=== PATIENT | male | born 1945 | race Caucasian/White ===

== ENCOUNTER 2024-08-11 13:50 | Outpatient (CLI) | payer MEDICARE, SELFPAY ==
--- OUTSIDE RECORDS SUMMARY | 2024-08-11 13:54 | XMS_ITS | Encounter Summary ---
Author Name [facility] [place] [facility] [place] Address [address] [place] [id number] Care Team Providers Care Security Specialist Name Role Phone ROLAND OCHOA Primary Care Provider Unavailabl e Insurance Providers: All historical and current Section Date Range: From patient's date of to the date document was created. This section includes the names of all active insurance providers for the patient. Insurance Provider Type of Coverage Plan Name Start of Policy Coverage End of Policy Coverage Group Number Member ID Insurance Provider's Telephone Number Policy Frank's Name Patient's Relationship to Policy Frank [employer] MEDICARE SECONDARY (NO B EXC) OCCID ENTAL KATHIA Sep 15, 1990 [id number] Shonna FLOWERS OBBY PATIENT AETNA [facility] (WNR) MEDICARE ADVANTAGE [facility] (WNR) Mar 18, 2018 [id number] MEBRZWH Z LIONEL,Shonna OBBY PATIENT [employer]NA [facility] (WNR) MEDICARE ADVANTAGE [facility] (WNR) Mar 18, 2018 [phone] [id number] LIONEL,Shonna OBBY PATIENT [employer] [facility] PRESCRIPT ION NONE Mar 18, 2009 NONE [id number] Shonna FLOWERS OBBY PATIENT MEDICARE (WNR) MEDICARE (M) PART A Jan 17, 2012 PART A [id number] LIONEL,B OBBY PATIENT MEDICARE (WNR) MEDICARE (M) PART B Jan 17, 2012 PART B [id number] LIONEL,B OBBY PATIENT MEDICARE PART D (WNR) MEDICARE (M) PART D Mar 18, 2018 PART D [id number] FLOWERS,B OBBY PATIENT Selected Encounter This section includes the information on record at [place] for the Encounter. Date/Time Encounter Type Encounter Description Reason Pro vider Source Jun 16, 2024 12:00 PM Outpatient Encounter COMMUNITY CARE CONSULT IHE Encounter Template Text not used by [place] Plan of Treatment: Future Appointments (+ 6 months) and Future Tests (+/- 45 days) The Plan of Treatment section includes [facility] care [facility] the [facility] [place] [facility] This section includes future appointments and future orders which are active, pending or scheduled. Future Appointments This section includes appointments that were scheduled to occur 6 months from the date of the Encounter, up to a maximum of 20 appointments. The data comes from all [place] treatment facilities. Appointment Date/Time Appointment Type Appointme nt Facility Name July 23, 2024 08:40 AM [facility] Aug 18, 2024 01:00 PM AMBULAT[facility] - MEDICINE [facility] Active, Pending, and Scheduled Orders This section includes a listing of several types of active, pending, and scheduled orders, including clinic medications orders, diagnostic test orders, procedure orders and consult orders; where the start date of the order is 45 days before the date of the Encounter or 45 days after the date of theEncounter. The data comes from all [place] treatment facilities. Test Date/Time Test Type Test Details Facility Name July 23, 2024 12:00 AM Laboratory - Chemi strkendell Order URINALYSIS WITH REFLEX TO CULTURE URINE SP ONCE [facility] Social History: Smoking Status (Most current) and Tobacco Use (All prior to encounter date) This section includes the most current, and the historical, smoking and tobacco- related health factors from the [place] facility where the Encounter took place. Current Smoking Status This section includes the most current smoking, or tobacco-related health factor, from the [place] facility where the Encounter took place. Date/Time Current Smoking Status Comment Facil ity Dec 31, 2022 08:00 AM VA-TOBACCO NEVER USED [facility] Tobacco Use History This section includes a history of the smoking, or tobacco-related health factors, that were collected on or before the date of the Encounter. The data comes from the [place] facility where the Encounter took place. Date/Time Smoking Status/Tobacco Use Comment F acility Dec 29, 2021 08:30 AM VA-TOBACCO NEVER USED [facility] Dec 29, 2020 08:00 AM VA-TOBACCO NEVER USED [facility] Jan 08, 2020 09:00 AM VA-TOBACCO FORMER USER [facility] Jan 08, 2020 09:00 AM VA-TOBACCO QUIT 15 YRS OR MORE [facility] Nov 24, 2018 01:49 PM VA-TOBACCO NEVER USED [facility] Dec 18, 2017 09:12 AM VA-TOBACCO NEVER USED [facility] Jun 01, 2016 08:52 AM V9 LIFETIME NON-USER OF TOBACCO [facility] Dec 02, 2014 09:26 AM V9 LIFETIME NON-USER OF TOBACCO [facility] Nov 30, 2013 08:47 AM V9 LIFETIME NON-USER OF TOBACCO [facility] Nov 26, 2012 08:03 AM V9 LIFETIME NON-USER OF TOBACCO [facility] Nov 26, 2012 08:03 AM V9 TOBACCO OFFERED [facility] Nov 26, 2011 01:49 PM V9 LIFETIME NON-USER OF TOBACCO [facility] Encounter Notes: All associated encounter notes This section contains the clinical notes associated to the Encounter. Date/Time Encounter Note(s) Provider Source Jun 16, 2024 12:00 PM NONVA CONSULT: LOCAL TITLE: COMMUNITY CARE-CONSULT RESULT NOTE STANDARD TITLE: NONVA CONSULT DATE OF NOTE: JUN 16, 2024@12:00 ENTRY DATE: JUN 25, 2024@15:56:35 AUTHOR: DUY DOUGHERTY EXP COSIGNER: URGENCY: STATUS: COMPLETED VistA Imaging - Scanned Document [facility]ITC Chiropractic Record SCANNED DOCUMENT SIGNATURE NOT REQUIRED Electronically Filed: 06/25/2024 by: Duy Dougherty Formerly [facility] AMSA-Pod 5 DUY DOUGHERTY [facility]
--- OUTSIDE RECORDS SUMMARY | 2024-08-11 13:54 | XMS_ITS | Data Portability ---
Author Organization ANDRA - Rolando farias, AMADAS HUNNEWELL CLOSED Address [address] [place] [address] Care Team Providers Care Service Technician Name Role Phone GHANSHYAM PINEDA Primary Care Provider [phone] Assessment Encounter Date Assessment Date Assessment LastModified by Organization Details LastModified Time 04/30/2024 04/30/2024 Assessment: Chronic cystitis, dysuria, history of malignant neoplasm of the prostate. Plan: ? I am sending the urine for culture given the results of in office urinalysis. ? We discussed conservative measures such as maintaining adequate hydration and avoidance of bladder irritants. ? We also discussed possible utility of hyperbaric oxygen therapy for radiation cystitis, I gave him some informational materials on this. ? He is scheduled for follow-up with Dr. Merlos for follow up on PSA, if he is interested in possibly pursuing hyperbaric oxygen therapy, he can discuss this further with Dr. Merlos. Not available 05/07/2024 14:11:34 06/05/2024 06/05/2024 79-year-old male with a history of prostate cancer presenting with radiation cystitis. 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 Consider hyperbaric oxygen therapy for management. Monitoring symptoms and reassessment in future visits are planned. [email or web address] Not available 06/07/2024 11:42:06 Plan of Treatment Reminders Order Date Submit Date Provider Last Modified By Organization Details Last Modified Time Details Appointments RECHECK 2024 10:30A Adonis GAMING MD Not available Not available Not available RECHECK 2024 10:00A Adonis MERLOS MD Not available Not available Not available Lab urinalysi s panel, auto 2024 025 [facility], [address], [place], [address], 06/07/2024 15:26:26 urinalysi s panel, auto 2024 025 [email or web address] 4 [facility], [address], [address], [place], [address], 04/30/2024 15:21:20 culture, urine 2024 025 [facility], [address] [place] [address], [address], 05/01/2024 09:57:00 culture, urine 2024 025 [facility], [address] [place] [address], [address], 04/25/2024 10:35:46 urinalysi s panel, auto 2023 024 [facility], [address], [address], [place], [address], 03/15/2024 11:36:54 Referral None recorded. Procedures None recorded. Surgeries None recorded. Imaging None recorded. Medication Orders None recorded. Patient TargetsNo targets recorded. Patient Instructions Encounter Date Encounter Id Patient Instructions Last Modified By Organization Details Last Modified Time 06/05/2024 [id number] - Monitor for an y changes or worsening of symptoms, such as increased frequency or volume of bleeding. - Consider hyperbaric oxygen therapy if symptoms persist or become bothersome, as discussed. - Follow-up in six months for reevaluation unless symptoms require sooner intervention. - Note any new symptoms such as pain or discomfort during urination and report them promptly. [email or web address] Not available 06/07/2024 11:42:08 Reason for Referral None Reported. Results Created Date Observation Date Name Description Value Unit Range Abnormal Flag Note LastModifiedBy Organization Detail LastModifiedTime 02/07/2002/07/2024 urina lysis panel , auto Unknown Analyte Clean Catch Not Available [facility] [address], [place], [address], 02/07/2024 11:11:49 02/07/2002/07/2024 urina lysis panel , auto Unknown Analyte Yellow Not Available [facility] [address], [place], [address], 02/07/2024 11:11:49 02/07/2002/07/2024 urina lysis panel , auto Unknown Analyte Clear Not Available [facility] [address], [place], [address], 02/07/2024 11:11:49 02/07/2002/07/2024 urina lysis panel , auto Unknown Analyte 1.005 Not Available [facility] [address], [place], [address], 02/07/2024 11:11:49 02/07/2002/07/2024 urina lysis panel , auto Unknown Analyte 1.003- 1.035 Not Available [facility] [address], [place], [address], 02/07/2024 11:11:49 02/07/2002/07/2024 urina lysis panel , auto Unknown Analyte 7.0 Not Available [facility] [address], [place], [address], 02/07/2024 11:11:49 02/07/2002/07/2024 urina lysis panel , auto Unknown Analyte 5.0-8. 0 Not Available [facility] [address], [place], [address], 02/07/2024 11:11:49 02/07/2002/07/2024 urina lysis panel , auto Unknown Analyte Negati ve Not Available [facility] [address], [place], [address], 02/07/2024 11:11:49 02/07/2002/07/2024 urina lysis panel , auto Unknown Analyte Negati ve Not Available [facility] [address], [place], [address], 02/07/2024 11:11:49 02/07/2002/07/2024 urina lysis panel , auto Unknown Analyte Negati ve Not Available [facility] [address], [place], [address], 02/07/2024 11:11:49 02/07/2002/07/2024 urina lysis panel , auto Unknown Analyte Negati ve Not Available [facility] [address], [place], [address], 02/07/2024 11:11:49 02/07/2002/07/2024 urina lysis panel , auto Unknown Analyte Negati ve Not Available [facility] [address], [place], [address], 02/07/2024 11:11:49 02/07/2002/07/2024 urina lysis panel , auto Unknown Analyte Negati ve Not Available [facility] [address], [place], [address], 02/07/2024 11:11:49 02/07/2002/07/2024 urina lysis panel , auto Unknown Analyte Normal Not Available [facility] [address], [place], [address], 02/07/2024 11:11:49 02/07/2002/07/2024 urina lysis panel , auto Unknown Analyte Normal Not Available [facility] [address], [place], [address], 02/07/2024 11:11:49 02/07/2002/07/2024 urina lysis panel , auto Unknown Analyte Negati ve Not Available [facility] [address], [place], [address], 02/07/2024 11:11:49 02/07/2002/07/2024 urina lysis panel , auto Unknown Analyte Negati ve Not Available [facility] [address], [place], [address], 02/07/2024 11:11:49 02/07/2002/07/2024 urina lysis panel , auto Unknown Analyte Normal Not Available [facility] [address], [place], [address], 02/07/2024 11:11:49 02/07/20 24 02/07/2024 urina lysis panel , auto Unknown Analyte Normal 1 mg/dl Not Available [facility] [address] [facility] [address], [place], [address], 02/07/2024 11:11:49 02/07/20 24 02/07/2024 urina lysis panel , auto Unknown Analyte Negati ve Not Available [facility] [address] [facility] [address], [place], [address], 02/07/2024 11:11:49 02/07/2002/07/2024 urina lysis panel , auto Unknown Analyte Negati ve Not Available [facility] [address] [place] [address] [address], [place], [address], 02/07/2024 11:11:49 02/07/2002/07/2024 urina lysis panel , auto Unknown Analyte Negati ve Not Available [facility] [address] [place] [address] [address], [place], [address], 02/07/2024 11:11:49 02/07/2002/07/2024 urina lysis panel , auto Unknown Analyte Negati ve Not Available [facility] [address] [place] [address] [address], [place], [address], 02/07/2024 11:11:49 03/04/2003/04/2024 SURGI KEVIN surgical SEE BELOW normal Surgi kevin Patho logy Repor t NAME: CHEIKH EATON PATH: SS-24 [id number] 5 DATE of : 01/[birth year] 0 Copy to: Diagn osis: Bladd er lesio n: Benig n uroth elium with subja cent chron ic cysti tis with conge stion . No malig krystin ident ified . SOURC E OF SPECI MEN: URINA RY BLADD ER BIOPS Y, LESIO N CLINI KEVIN INFOR MATIO N: HEMAT URIA Gross Descr iptio n: Patie nt name and date of verif ied. Recei qamar in forma jordan label ed with the patie nt's name and desig nated blad christie lesio n is a singl e fragm ent of pale yeh tissu e measu ring 0.3 cm. Entir tamiko submi tted in one casse tte label ed A1. MT 03/04 03:40 PM Micro scopi c Descr iptio n: A micro scopi c exami natio n has been perfo rmed and the resul t(s) are as noted above . THOMPSON PEREZ M.D. Adriana d Out Date: 03/05 08:49 Page 1 of 1 Not Available [facility] [address] [place], [address], 03/05/2024 08:49:35 03/04/20 24 03/04/2024 urina lysis panel , auto Unknown Analyte Clean Catch Not Available [facility] Surgery Schedule [address] [place], [address], 03/04/2024 12:13:33 03/04/20 24 03/04/2024 urina lysis panel , auto Unknown Analyte Yellow Not Available [facility] Schedule [address] [place], [address], 03/04/2024 12:13:33 03/04/20 24 03/04/2024 urina lysis panel , auto Unknown Analyte Clear Not Available [facility] Schedule [address] [place], [address], 03/04/2024 12:13:33 03/04/20 24 03/04/2024 urina lysis panel , auto Unknown Analyte 1.020 Not Available [facility] Schedule [address] [place], [address], 03/04/2024 12:13:33 03/04/20 24 03/04/2024 urina lysis panel , auto Unknown Analyte 5.0 Not Available [facility] Schedule [address] [place], [address], 03/04/2024 12:13:33 03/04/20 24 03/04/2024 urina lysis panel , auto Unknown Analyte Negati ve Not Available [facility] Schedule [address] [place], [address], 03/04/2024 12:13:33 03/04/20 24 03/04/2024 urina lysis panel , auto Unknown Analyte Negati ve Not Available [facility] Schedule [address] [place], [address], 03/04/2024 12:13:33 03/04/20 24 03/04/2024 urina lysis panel , auto Unknown Analyte Negati ve Not Available [facility] Schedule [address] [place], [address], 03/04/2024 12:13:33 03/04/20 24 03/04/2024 urina lysis panel , auto Unknown Analyte Normal Not Available [facility] Schedule [address] [place], [address], 03/04/2024 12:13:33 03/04/20 24 03/04/2024 urina lysis panel , auto Unknown Analyte Negati ve Not Available [facility] Schedule [address] [place], [address], 03/04/2024 12:13:33 03/04/20 24 03/04/2024 urina lysis panel , auto Unknown Analyte Normal Not Available [facility] Schedule [address] [place], [address], 03/04/2024 12:13:33 03/04/20 24 03/04/2024 urina lysis panel , auto Unknown Analyte Negati ve Not Available [facility] Schedule [address] [place], [address], 03/04/2024 12:13:33 03/04/20 24 03/04/2024 urina lysis panel , auto Unknown Analyte 50 Tay/ul Not Available [facility] Schedule [address] [place], [address], 03/04/2024 12:13:33 03/13/20 24 03/13/2024 urina lysis panel , auto Unknown Analyte Clean Catch Not Available [facility] [address], [place], [address], 03/13/2024 12:23:32 03/13/20 24 03/13/2024 urina lysis panel , auto Unknown Analyte Yellow Not Available [facility] [address], [place], [address], 03/13/2024 12:23:32 03/13/20 24 03/13/2024 urina lysis panel , auto Unknown Analyte Clear Not Available [facility] [address], [place], [address], 03/13/2024 12:23:32 03/13/20 24 03/13/2024 urina lysis panel , auto Unknown Analyte 1.005 Not Available [facility] [address], [place], [address], 03/13/2024 12:23:32 03/13/20 24 03/13/2024 urina lysis panel , auto Unknown Analyte 1.003- 1.035 Not Available [facility] [address], [place], [address], 03/13/2024 12:23:32 03/13/20 24 03/13/2024 urina lysis panel , auto Unknown Analyte 7.0 Not Available [facility] [address], [place], [address], 03/13/2024 12:23:32 03/13/20 24 03/13/2024 urina lysis panel , auto Unknown Analyte 5.0-8. 0 Not Available [facility] [address], [place], [address], 03/13/2024 12:23:32 03/13/20 24 03/13/2024 urina lysis panel , auto Unknown Analyte Negati ve Not Available [facility] [address], [place], [address], 03/13/2024 12:23:32 03/13/20 24 03/13/2024 urina lysis panel , auto Unknown Analyte Negati ve Not Available [facility] [address], [place], [address], 03/13/2024 12:23:32 03/13/20 24 03/13/2024 urina lysis panel , auto Unknown Analyte Negati ve Not Available [facility] [address], [place], [address], 03/13/2024 12:23:32 03/13/20 24 03/13/2024 urina lysis panel , auto Unknown Analyte Negati ve Not Available [facility] [address], [place], [address], 03/13/2024 12:23:32 03/13/20 24 03/13/2024 urina lysis panel , auto Unknown Analyte Negati ve Not Available [facility] [address], [place], [address], 03/13/2024 12:23:32 03/13/20 24 03/13/2024 urina lysis panel , auto Unknown Analyte Negati ve Not Available [facility] [address], [place], [address], 03/13/2024 12:23:32 03/13/20 24 03/13/2024 urina lysis panel , auto Unknown Analyte Normal Not Available [facility] [address], [place], [address], 03/13/2024 12:23:32 03/13/20 24 03/13/2024 urina lysis panel , auto Unknown Analyte Normal Not Available [facility] [address], [place], [address], 03/13/2024 12:23:32 03/13/20 24 03/13/2024 urina lysis panel , auto Unknown Analyte Negati ve Not Available [facility] [address], [place], [address], 03/13/2024 12:23:32 03/13/20 24 03/13/2024 urina lysis panel , auto Unknown Analyte Negati ve Not Available [facility] [address], [place], [address], 03/13/2024 12:23:32 03/13/20 24 03/13/2024 urina lysis panel , auto Unknown Analyte Normal Not Available [facility] [address], [place], [address], 03/13/2024 12:23:32 03/13/20 24 03/13/2024 urina lysis panel , auto Unknown Analyte Normal 1 mg/dl Not Available [facility] [address], [place], [address], 03/13/2024 12:23:32 03/13/20 24 03/13/2024 urina lysis panel , auto Unknown Analyte Negati ve Not Available [facility] [address], [place], [address], 03/13/2024 12:23:32 03/13/20 24 03/13/2024 urina lysis panel , auto Unknown Analyte Negati ve Not Available [facility] [address], [place], [address], 03/13/2024 12:23:32 03/13/20 24 03/13/2024 urina lysis panel , auto Unknown Analyte 250 Tay/ul Not Available [facility] [address], [place], [address], 03/13/2024 12:23:32 03/13/20 24 03/13/2024 urina lysis panel , auto Unknown Analyte Negati ve Not Available [facility] [address], [place], [address], 03/13/2024 12:23:32 04/24/19 25 04/24/2024 URINE CULTU RE enterococcus faecalis Organi sm: Entero coccus faecal is Not Available [facility] [address] [place] [address], [address], 04/27/2024 09:39:06 04/24/19 25 04/27/2024 URINE CULTU RE urine culture abnormal ISOLA TE #1 COLON Y COUNT : > 100,0 00 CFU/M L Proba ble Strep tococ cus sp.; ID and sensi tivit y in progr ess. See [place] te Resul t(s) Below Enter ococc us faeca lis Not Available [facility] [address] [place] [address], [address], 04/27/2024 09:39:06 04/24/19 25 04/27/2024 URINE CULTU RE ampicillin <=2 ug/mL susceptib le Not Available [facility] [address] [place] [address], [address], 04/27/2024 09:39:06 04/24/19 25 04/27/2024 URINE CULTU RE ciprofloxaci n <=1 ug/mL susceptib le Not Available [facility] [address] [place] [address], [address], 04/27/2024 09:39:06 04/24/19 25 04/27/2024 URINE CULTU RE levofloxacin <=1 ug/mL susceptib le Not Available [facility] [address] [place] [address], [address], 04/27/2024 09:39:06 04/24/19 25 04/27/2024 URINE CULTU RE nitrofuranto in <=32 ug/mL susceptib le Not Available [facility] [address] [place] [address], [address], 04/27/2024 09:39:06 04/24/19 25 04/27/2024 URINE CULTU RE penicillin 2 ug/mL susceptib le Not Available [facility] [address] [place] [address], [address], 04/27/2024 09:39:06 04/24/19 25 04/27/2024 URINE CULTU RE rifampin <=1 ug/mL susceptib le Not Available [facility] [address] [place] [address], [address], 04/27/2024 09:39:06 04/24/19 25 04/27/2024 URINE CULTU RE tetracycline >8 ug/mL resistant Not Available [facility] [address] [place], [address], 04/27/2024 09:39:06 04/24/19 25 04/27/2024 URINE CULTU RE vancomycin 2 ug/mL susceptib le Not Available [facility] [address] [place] [address], [address], 04/27/2024 09:39:06 04/30/19 25 05/04/2024 URINE CULTU RE urine culture No growth day 4. Not Available [facility] [address] [place] [address], [address], 05/04/2024 12:56:08 04/30/19 25 04/30/2024 urina lysis panel , auto Unknown Analyte Clean Catch Not Available [facility] [address], [place], [address], 04/30/2024 09:23:37 04/30/19 25 04/30/2024 urina lysis panel , auto Unknown Analyte Yellow Not Available [facility] [address], [place], [address], 04/30/2024 09:23:37 04/30/19 25 04/30/2024 urina lysis panel , auto Unknown Analyte Slight ly Hazy Not Available [facility] [address], [place], [address], 04/30/2024 09:23:37 04/30/19 25 04/30/2024 urina lysis panel , auto Unknown Analyte 1.005 Not Available [facility] [address], [place], [address], 04/30/2024 09:23:37 04/30/19 25 04/30/2024 urina lysis panel , auto Unknown Analyte 1.003- 1.035 Not Available [facility] [address], [place], [address], 04/30/2024 09:23:37 04/30/19 25 04/30/2024 urina lysis panel , auto Unknown Analyte 6.0 Not Available [facility] [address], [place], [address], 04/30/2024 09:23:37 04/30/19 25 04/30/2024 urina lysis panel , auto Unknown Analyte 5.0-8. 0 Not Available [facility] [address], [place], [address], 04/30/2024 09:23:37 04/30/19 25 04/30/2024 urina lysis panel , auto Unknown Analyte 25 Alfonso/ul Trace Not Available [facility] [address], [place], [address], 04/30/2024 09:23:37 04/30/19 25 04/30/2024 urina lysis panel , auto Unknown Analyte Negati ve Not Available [facility] [address], [place], [address], 04/30/2024 09:23:37 04/30/19 25 04/30/2024 urina lysis panel , auto Unknown Analyte Negati ve Not Available [facility] [address], [place], [address], 04/30/2024 09:23:37 04/30/19 25 04/30/2024 urina lysis panel , auto Unknown Analyte Negati ve Not Available [facility] [address], [place], [address], 04/30/2024 09:23:37 04/30/19 25 04/30/2024 urina lysis panel , auto Unknown Analyte Negati ve Not Available [facility] [address], [place], [address], 04/30/2024 09:23:37 04/30/19 25 04/30/2024 urina lysis panel , auto Unknown Analyte Negati ve Not Available [facility] [address], [place], [address], 04/30/2024 09:23:37 04/30/19 25 04/30/2024 urina lysis panel , auto Unknown Analyte Normal Not Available [facility] [address], [place], [address], 04/30/2024 09:23:37 04/30/19 25 04/30/2024 urina lysis panel , auto Unknown Analyte Normal Not Available [facility] [address], [place], [address], 04/30/2024 09:23:37 04/30/19 25 04/30/2024 urina lysis panel , auto Unknown Analyte Negati ve Not Available [facility] [address], [place], [address], 04/30/2024 09:23:37 04/30/19 25 04/30/2024 urina lysis panel , auto Unknown Analyte Negati ve Not Available [facility] [address], [place], [address], 04/30/2024 09:23:37 04/30/19 25 04/30/2024 urina lysis panel , auto Unknown Analyte Normal Not Available [facility] [address], [place], [address], 04/30/2024 09:23:37 04/30/19 25 04/30/2024 urina lysis panel , auto Unknown Analyte Normal 1 mg/dl Not Available [facility] [address], [place], [address], 04/30/2024 09:23:37 04/30/19 25 04/30/2024 urina lysis panel , auto Unknown Analyte Negati ve Not Available [facility] [address], [place], [address], 04/30/2024 09:23:37 04/30/19 25 04/30/2024 urina lysis panel , auto Unknown Analyte Negati ve Not Available [facility] [address] [facility] [address], [place], [address], 04/30/2024 09:23:37 04/30/19 25 04/30/2024 urina lysis panel , auto Unknown Analyte 250 Tay/ul Not Available [facility] [address] [facility] [address], [place], [address], 04/30/2024 09:23:37 04/30/19 25 04/30/2024 urina lysis panel , auto Unknown Analyte Negati ve Not Available [facility] [address] [facility] [address], [place], [address], 04/30/2024 09:23:37 05/11/19 25 05/15/2024 TESTO STERO NE, FREE testosterone , free 10.2 pg/mL 6.0-73 .0 normal MDF med fusio n [address] [facility] [address] [facility] [address] [phone] [facility] MD, PhD Not Available [facility] [address] [place], [address], 05/15/2024 21:31:12 05/11/19 25 05/11/2024 TESTO STERO NE, TOTAL testosterone , total 90 NG/dL 193-74 0 low Refer ence range is for age 50 years and over. Not Available [facility] [address] [place], [address], 05/11/2024 12:01:18 05/11/19 25 05/11/2024 PROST ATE SPECI FIC AG prostate specific Ag <0.014 NG/mL 0.000- 4.400 normal This test was perfo rmed using Marianne e801 Elect marianne milum inesc ent metho d. The test metho d is based on WHO-s tanda rdize d calib ratio n. Value s obtai clarita from diffe rent assay metho ds or manuf actur ers may not be tran rable . Not Available [facility] [address] [place], [address], 05/11/2024 12:01:17 05/20/19 25 05/21/2024 URINE CULTU RE urine culture No growth day 2. Not Available [facility] [address] [place], [address], 05/21/2024 11:50:08 05/20/19 25 05/20/2024 URINE CULTU RE urine culture No growth day 1. Not Available [facility] [address] [place], [address], 05/20/2024 09:13:08 06/06/19 25 06/05/2024 urina lysis panel , auto Unknown Analyte Clean Catch Not Available [facility] [address], [place], [address], 06/05/2024 14:23:39 06/06/19 25 06/05/2024 urina lysis panel , auto Unknown Analyte Yellow Not Available [facility] [address] [place] [address] [address], [place], [address], 06/05/2024 14:23:39 06/06/19 25 06/05/2024 urina lysis panel , auto Unknown Analyte Clear Not Available [facility] [address] [place] [address] [address], [place], [address], 06/05/2024 14:23:39 06/06/19 25 06/05/2024 urina lysis panel , auto Unknown Analyte 1.010 Not Available [facility] [address], [address], 06/05/2024 14:23:39 06/06/19 25 06/05/2024 urina lysis panel , auto Unknown Analyte 1.003 - 1.030 Not Available [facility] [address], [place], [address], 06/05/2024 14:23:39 06/06/19 25 06/05/2024 urina lysis panel , auto Unknown Analyte 6.0 Not Available [facility] [address], [place], [address], 06/05/2024 14:23:39 06/06/19 25 06/05/2024 urina lysis panel , auto Unknown Analyte 5.0 - 8.0 Not Available [facility] [address], [place], [address], 06/05/2024 14:23:39 06/06/19 25 06/05/2024 urina lysis panel , auto Unknown Analyte Negati ve Not Available [facility] [address], [place], [address], 06/05/2024 14:23:39 06/06/19 25 06/05/2024 urina lysis panel , auto Unknown Analyte Negati ve Not Available [facility] [address], [place], [address], 06/05/2024 14:23:39 06/06/19 25 06/05/2024 urina lysis panel , auto Unknown Analyte Negati ve Not Available [facility] [address], [place], [address], 06/05/2024 14:23:39 06/06/19 25 06/05/2024 urina lysis panel , auto Unknown Analyte Negati ve Not Available [facility] [address], [place], [address], 06/05/2024 14:23:39 06/06/19 25 06/05/2024 urina lysis panel , auto Unknown Analyte Negati ve Not Available [facility] [address], [place], [address], 06/05/2024 14:23:39 06/06/19 25 06/05/2024 urina lysis panel , auto Unknown Analyte Negati ve Not Available [facility] [address], [place], [address], 06/05/2024 14:23:39 06/06/19 25 06/05/2024 urina lysis panel , auto Unknown Analyte Normal Not Available [facility] [address], [place], [address], 06/05/2024 14:23:39 06/06/19 25 06/05/2024 urina lysis panel , auto Unknown Analyte Normal Not Available [facility] [address], [place], [address], 06/05/2024 14:23:39 06/06/19 25 06/05/2024 urina lysis panel , auto Unknown Analyte Negati ve Not Available [facility] [address], [place], [address], 06/05/2024 14:23:39 06/06/19 25 06/05/2024 urina lysis panel , auto Unknown Analyte Negati ve Not Available [facility] [address], [place], [address], 06/05/2024 14:23:39 06/06/19 25 06/05/2024 urina lysis panel , auto Unknown Analyte Normal Not Available [facility] [address], [place], [address], 06/05/2024 14:23:39 06/06/19 25 06/05/2024 urina lysis panel , auto Unknown Analyte Normal Not Available [facility] [address], [place], [address], 06/05/2024 14:23:39 06/06/19 25 06/05/2024 urina lysis panel , auto Unknown Analyte Negati ve Not Available [facility] [address] [place] [address] [address], [place], [address], 06/05/2024 14:23:39 06/06/19 25 06/05/2024 urina lysis panel , auto Unknown Analyte Negati ve Not Available [facility] [address], [place], [address], 06/05/2024 14:23:39 06/06/19 25 06/05/2024 urina lysis panel , auto Unknown Analyte Negati ve Not Available [facility] [address], [place], [address], 06/05/2024 14:23:39 06/06/19 25 06/05/2024 urina lysis panel , auto Unknown Analyte Negati ve Not Available [facility] [address], [place], [address], 06/05/2024 14:23:39 02/21/20 24 01/27/2024 CT, abdom en + pelvi s, w/o contr ast No observ ation record ed. BARCODE Not Available 2023 13:11:02 02/21/20 24 02/05/2024 CT, abdom en + pelvi s, w/o contr ast No observ ation record ed. BARCODE Not Available 2023 13:11:03 Result Notes None recorded. 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 824321869 Active 2016 [facility] 8 10:12:52 Kidney stone 20712762 Active 2016 [facility] 8 10:12:52 Prostate specific antigen above reference range 024961797 Active 2016 [facility] 8 10:12:52 Malignant neoplasm of prostate 868870187 Active 2021 GUY MERLOS JR, MD [address] [place] [address], [address], [facility] 2 13:47:16 Oh hematuria 821525687 Active 2023 GUY MERLOS JR, MD [address] [place] [address], [address], [facility] 4 14:27:14 Lower urinary tract symptoms due to benign prostatic hypertrop hy 574835430929 01 Active 2014 From Automated Load;Prov ider: Guy Merlos Jr;St atus: Active [facility] 8 10:12:52 Intestina l obstructi on due to Crohn's disease of small intestine 362689931692 9103 Active 2015 From Automated Load;Prov ider: Suleiman Agustin;Stat us: Active Deseriee [place] null, [place] - [facility] 8 10:12:52 Abdominal bloating 962573300 Active 2015 From Automated Load;Prov ider: Suleiman Agustin;Stat us: Active Deseriee [place] null, [facility] 8 10:12:52 Intoleran ce to food 674844926 Active 2015 From Automated Load;Prov ider: Suleiman Agustin;Stat us: Active Deseriee [place] null, [place] [facility] 8 10:12:52 Complicat ion due to Crohn's disease of small intestine 780835528330 9107 Active 2015 From Automated Load;Prov ider: Suleiman Agustin;Stat us: Active Deseriee [place] null, [facility] 8 10:12:52 Diarrhea 48248339 Active 2015 From Automated Load;Prov ider: Suleiman Agustin;Stat us: Active Deseriee [place] null, [place] - [facility] 8 10:12:52 Nocturia 607652966 Active 2015 Provider: Asmita Merlos Jr: Active Deseriee [place] null, [facility] 8 10:12:52 Urgent desire to urinate 87965999 Active 2015 From Automated Load;Prov ider: Guy Merlos Jr; atus: Active Deseriee [place] null, [place] - [facility] 8 10:12:52 Intestina l obstructi on due to Crohn's disease of small and large intestine 764810645697 9104 Active 2015 From Automated Load;Prov ider: Suleiman Agustin;Stat us: Active Deseriee [place] null, [place] - [facility] 8 10:12:52 Irritable bowel syndrome 89687643 Active 2015 From Automated Load;Prov ider: Suleiman Agustin;Stat us: Active Deseriee [place] null, [place] - [facility] 8 10:12:52 Incomplet e passage of stool 743749853 Active 2015 From Automated Load;Prov ider: Suleiman Agustin;Stat us: Active Nini Riggs [facility] 8 10:12:52 Problem Notes None recorded. Procedures Surgical History Date Name Laterality Status Provider Name and Address Organization Details Recorded Time 03/04/20 24 Cystoscopy - male completed GUY MERLOS JR, MD [address] [place], [address], [facility] 03/04/2024 14:27:00 06/08/19 23 Eligard Administration completed Yessica Paige [facility] 06/07/2022 09:03:25 09/16/19 22 Biopsy Prostate, Needle w/Transrectal US completed GUY MERLOS JR, MD [address] [place], [address], [facility] 09/15/2021 14:54:07 01/09/20 17 CYSTOSCOPY (SURG) completed Amanda Cobian [facility] 01/11/2017 15:27:39 Appendectomy completed [facility] 12/12/2016 09:53:20 Cholecystectomy completed [facility] 12/12/2016 09:53:22 Imaging Results None recorded. Procedure Notes None recorded. Medical Equipment None Reported. Allergies Allergen ID Allergen Name Allergen Category Reaction Reaction Severity Criticality Documentation Date Start Date Code Code System Note Provider Name and Address Organization Details Recorded Time 175202 lisinopri l medicatio n swelling Not available Not available 03/13/2024 96681 RxNorm throa t swell ing Yessica Paige [facility] 11:08:12 Medications Name Sig Start Date Stop Date Status Note LastModified by Organization Details LastModified Time Percocet 7.5 mg-325 mg tablet Take 1 tablet every 6 hours by oral route as needed. 05/07 completed Not Available Not Available Not Available Multiple Vitamin capsule Daily active Duration : 30 days;James quency: daily;Me dication Descript ion: multivit chen; Dosage:1 ; Route:or al; refills: 3; Quantity :100 capsule Not Available Not Available Not Available hydrocodo ne 5 mg-acetam inophen 325 mg tablet Take 1 tablet every 6 hours by oral route as needed. 2023 active Not Available Not Available Not Avai lable Aleve 220 mg tablet As needed active Duration : 1 day;Freq uency: prn;Medi cation Descript ion: naproxen ; Route:or al; refills: 0; Quantity :3 tablet Not Available Not Available Not Available doxycycli ne monohydra te 100 mg capsule Take 1 capsule twice a day by oral route. 05/07 completed Not Available Not Available Not Available buspirone 10 mg tablet Two times a day 2015 active Instruct ions: 1, BID;Freq uency: bid;Medi cation Descript ion: buspiron e; Dosage:1 ; Route:or al; refills: 2; Quantity :180 tablet Not Available Not Available Not Available clotrimaz ole-betam ethasone 1 %-0.05 % topical cream APPLY TO THE AFFECTED AND SURROUND ING AREAS OF SKIN BY TOPICAL ROUTE 2 TIMES PER DAY IN THE MORNING AND EVENING FOR 2 WEEKS 2023 active Not Available Not Available Not Avai lable budesonid e DR - ER 3 mg capsule,d elayed,ex tended release Bedtime 2015 active Instruct ions: 3, HS;Frequ ency: hs;Medic ation Descript ion: budesoni de; Dosage:3 ; Route:or al; refills: 2; Quantity :270 capsule, extended release Not Available Not Available Not Available levofloxa danny 500 mg tablet Take 1 tablet every 24 hours by oral route. 10/12 completed Not Available Not Available Not Available Citrucel (sucrose) oral powder 02/20 completed Medicati on Descript ion: methylce llulose; Dosage:1 ; Route:or al; refills: 0 Not Available Not Available Not Available lisinopri l 2.5 mg tablet Daily 12/12 completed Duration : 30 days;James quency: daily;Me dication Descript ion: lisinopr il; Dosage:1 ; Route:or al; refills: 5; Quantity :30 tablet Not Available Not Available Not Available alfuzosin ER 10 mg tablet,ex tended release 24 hr Daily 06/24 completed Not Available Not Available Not Available omeprazol e active Medicati on Descript ion: omeprazo le; refills: 0 Not Available Not Available Not Available metoprolo l tartrate active Medicati on Descript ion: metoprol ol; refills: 0 Not Available Not Available Not Available nitroglyc irene As needed active Instruct ions: take 1 prn chest pain, may repeat q 3-5 min x2;Frequ ency: prn;Medi cation Descript ion: nitrogly cerin; Dosage:1 ; refills: 0; Quantity :30 Not Available Not Available Not Available simvastat in active Medicati on Descript ion: simvasta tin; Route:or al; refills: 0 Not Available Not Available Not Available Vitamin D active Medicati on Descript ion: ergocalc iferol; Route:or al; refills: 0 Not Available Not Available Not Available losartan active Not Available Not Avai lable Not Available Miralax Daily active Instruct ions: 17gm in 8oz fluids QTY QS;Frequ ency: daily;Me dication Descript ion: polyethy nuno glycol 3350; Dosage:a s directed ; Route:or al; refills: 0; Quantity :1 powder for reconsti tution Not Available Not Available Not Available Align (B. is) 4 mg capsule Daily active Duration : 30 days;James quency: daily;Me dication Descript ion: bifidoba cterium infantis ; Dosage:1 ; Route:or al; refills: 0; Quantity :30 capsule Not Available Not Available Not Available Vimovo 500 mg-20 mg tablet,im mediate and delay release As needed active Frequenc y: prn;Medi cation Descript ion: esomepra zole-nap roxen; Route:or al; refills: 0 Not Available Not Available Not Available Entyvio 300 mg intraveno us solution active Medicati on Descript ion: vedolizu mab; Dosage:a s directed ; Route:in travenou s; refills: 0 Not Available Not Available Not Available Vitals Date Recorded Body height Body mass index (BMI) Body weight Provider Name and Address Organization Details Last Updated DateTime 04/30/2024 170.18 cm 28.2 kg/m2 65634.63 g Myrna Perales [facility] 04/30/2024 09:25:31 Date Recorded Body height Body mass index (BMI) Body weight Provider Name and Address Organization Details Last Updated DateTime 06/05/2024 170.18 cm 29.8 kg/m2 00112.55 g Netta Aj [facility] 06/05/2024 10:18:17 Date Recorded Body height Body mass index (BMI) Body weight Provider Name and Address Organization Details Last Updated DateTime 03/13/2024 170.18 cm 28.2 kg/m2 42814.63 g Yessica Royal [facility] 03/13/2024 11:07:22 Social History Question Answer Notes LastModified by Mercant[employer] Details LastModified Time Tobacco Smoking Status Never Smoker [facility] 12/12/2016 09:53:13 Marital Status Informati on not available 12/12/2016 What Was The Date Of Your Most Recent Tobacco Screening? 06/05/2024 [email or web address] Information not available 06/05/2024 What Is Your Relationship Status? [email or web address] Information not available 08/18/2021 Has Tobacco Cessation Counseling Been Provided? No [email or web address] Information not available 12/16/2017 Have You Recently Traveled Abroad? No [email or web address] Information not available 08/18/2021 Sex: Male Functional Status Question Answer Note LastModified by [employer] Details LastModified Time Do you use any illicit or recreational drugs? No [email or web address] Information not available 08/18/2021 Do you or have you ever used any other forms of tobacco or nicotine? No [email or web address] Information not available 08/18/2021 What is your level of alcohol consumption? Occasional Information not available 12/12/2016 Mental Status None recorded. Family History Relationship Description Onset Age of this Age Resolved Age Notes LastModified by Organization Details LastModified Time Father Family history of malignant neoplasm [email or web address] Not available 11/17 09:53:05 Medical History Condition Response Heart Disease Y Past Encounters Encounter ID Performer Location Encounter Start Date Encounter Closed Date Diagnosis/Indication Diagnosis SNOMED-CT Code Diagnosis ICD10 Code Diagnosis Note [id number] [facility] [address] 06/18/2016 23:23:36 06/18/2016 23:23:36 [id number] GUY MERLOS JR, MD [address] [place] [address] 12/12/2016 09:37:55 12/13/2016 09:32:33 Benign prostatic hyperplasia with outflow obstruction 563037959 N40.1 Kidney stone 70458301 N2 0.0 Nocturia 019898726 R35.1 [id number] GUY MERLOS JR, MD [facility] [address] [place] [address] 12/14/2016 09:54:18 12/14/2016 14:26:09 Prostate specific antigen above reference range 661567098 R97.20 [id number] GUY MERLOS JR, MD [facility] [address] [place] [address] 02/20/2017 09:24:37 02/21/2017 08:53:48 Benign prostatic hyperplasia with outflow obstruction 281114408 N40.1 Prostate s pecific antigen above reference range 191429619 R97.20 Kidney stone 63347450 N2 0.0 [id number] GUY MERLOS JR, MD [facility] [address] [facility] [address] [place] [address] 06/17/2017 09:13:48 06/19/2017 15:43:40 Benign prostatic hyperplasia with outflow obstruction 261349807 N40.1 Prostate s pecific antigen above reference range 836392863 R97.20 Kidney stone 96898298 N2 0.0 [id number] GUY MERLOS JR, MD [facility] [address] [place] [address] 12/16/2017 09:06:38 12/16/2017 10:17:03 Prostate specific antigen above reference range 823053131 R97.20 Benign pro static hyperplasia with outflow obstruction 940118796 N40.1 [id number] GUY MERLOS JR, MD [facility] [address] [place] [address] 0 06/26/2018 08:36:14 06/26/2018 09:18:10 Benign prostatic hyperplasia with outflow obstruction 304430837 N40.1 Prostate s pecific antigen above reference range 668987661 R97.20 Kidney stone 39298546 N2 0.0 [id number] GUY MERLOS JR, MD [facility] [address] [place] [address] 0 12/25/2018 08:27:32 12/25/2018 09:57:39 Lower urinary tract symptoms due to benign prostatic hypertrophy 1005637221 9101 N40.1 Prostate s pecific antigen above reference range 792623853 R97.20 Kidney stone 89668617 N2 0.0 [id number] GUY MERLOS JR, MD [facility] [address],[place] [address] 06/25/2019 10:31:17 06/25/2019 11:56:53 Benign prostatic hyperplasia with outflow obstruction 440646155 N40.1 Prostate s pecific antigen above reference range 275361806 R97.20 Kidney stone 63608799 N2 0.0 [id number] GUY MERLOS JR, MD [facility] [address] [facility],[place] [address] 12/21/2019 13:04:40 12/28/2019 12:20:59 Benign prostatic hyperplasia with outflow obstruction 471631551 N40.1 Prostate s pecific antigen above reference range 476110141 R97.20 Kidney stone 68649539 N2 0.0 [id number] GUY MERLOS JR, MD [facility] N [facility] [address] [facility] [address] [place] [address] 06/27/2020 14:20:29 07/01/2020 16:30:54 Benign prostatic hyperplasia with outflow obstruction 867629429 N40.1 Kidney stone 51690862 N2 0.0 Prostate s pecific antigen above reference range 385628392 R97.20 [id number] GUY MERLOS JR, MD [facility] [address] [place] [address] 01/02/2021 15:17:56 01/05/2021 15:12:30 Benign prostatic hyperplasia with outflow obstruction [id number] N40.1 Kidney stone 49328108 N2 0.0 Prostate s pecific antigen above reference range 799691534 R97.20 [id number] GUY MERLOS JR, MD [facility] [address] [place] [address] 07/17/2021 14:54:28 07/24/2021 16:27:05 Benign prostatic hyperplasia with outflow obstruction 036800147 N40.1 Kidney stone 62861503 N2 0.0 Prostate s pecific antigen above reference range 691765668 R97.20 [id number] GUY MERLOS JR, MD [facility] [address],[place] [place] [address] 0 08/18/2021 10:18:38 08/18/2021 11:20:05 Kidney stone 27385369 N20.0 Prostate s pecific antigen above reference range 757090389 R97.20 [id number] GUY MERLOS JR, MD SURGERY SCHEDULE [address] [place] [address] 09/15/2021 12:31:59 09/15/2021 12:32:54 Prostate specific antigen above reference range 847326295 R97.20 [id number] GUY MERLOS JR, MD [facility] [address] [place], [place] [address] 10/12/2021 13:50:20 10/12/2021 14:49:29 Malignant neoplasm of prostate 919831752 C61 [id number] GUY MERLOS JR, MD [facility] [address] [place], [place] [address] 12/18/2021 10:46:22 12/18/2021 11:36:57 Malignant neoplasm of prostate 446356782 C61 [id number] COLTON LAWRENCE MD [facility] [address] [place] [address] 12/28/2021 14:46:08 12/28/2021 15:34:49 Malignant neoplasm of prostate 913623239 C61 [id number] GUY MERLOS JR, MD [facility] [address] [place] [address] 01/26/2022 10:16:49 01/26/2022 10:38:09 Malignant neoplasm of prostate 802374516 C61 [id number] GUY MERLOS JR, MD [facility] [address] [place] [address] 05/02/2022 11:22:34 05/02/2022 12:30:42 Malignant neoplasm of prostate 266613273 C61 [id number] GUY MERLOS JR, MD [facility] [address] [place] [address] 05/07/2022 08:15:25 05/07/2022 12:19:42 Malignant neoplasm of prostate 497678795 C61 [id number] SEBASTIÁN GAMING MD [facility] [address] [place] [address] 05/14/2022 10:24:29 05/21/2022 16:12:13 [id number] SEBASTIÁN GAMING MD RADIATION THERAPY [address] [place] [address] 05/24/2022 13:05:36 05/25/2022 10:44:06 [id number] GUY MERLOS JR, MD [facility] [address] [place] [address] 06/07/2022 08:33:17 06/07/2022 11:17:22 Malignant neoplasm of prostate 587409209 C61 [id number] GUY MERLOS JR, MD [facility] [address] [place] [address] 08/27/2022 10:26:06 08/27/2022 11:04:42 Malignant neoplasm of prostate 038405412 C61 [id number] SEBASTIÁN GAMING MD RADIATION THERAPY [address] [place] [address] 11/12/2022 09:56:39 12/14/2022 09:17:49 [id number] GUY MERLOS JR, MD [facility] [address] [place] [address] 12/19/2022 10:40:47 12/19/2022 11:07:59 Benign prostatic hyperplasia with outflow obstruction [id number] N40.1 Malignant neoplasm of prostate 625654264 C61 [id number] SEBASTIÁN GAMING MD RADIATION THERAPY [address] [place] [address] 05/20/2023 10:03:16 05/20/2023 11:47:28 [id number] GUY MERLOS JR, MD [facility] [address] [place] [address] 08/09/2023 10:27:42 08/09/2023 11:08:04 Malignant neoplasm of prostate 412908192 C61 [id number] SEBASTIÁN GAMING MD RADIATION THERAPY [address] [place] [address] 11/19/2023 09:42:33 01/03/2024 10:40:57 [id number] GUY MERLOS JR, MD [facility] [address] [place] [address] 02/07/2024 10:48:19 02/09/2024 04:50:49 Malignant neoplasm of prostate 323785621 C61 Oh hematuria 90887569 5 R31.0 [id number] GUY MERLOS JR, MD SURGERY SCHEDULE [address] [place] [address] 03/04/2024 12:03:16 03/04/2024 12:04:20 Oh hematuria 143897758 R31.0 [id number] GUY MERLOS JR, MD [facility] [address] [place] [address] 03/13/2024 10:13:48 03/13/2024 11:13:18 Malignant neoplasm of prostate 175142918 C61 Radiation cystitis 40621 000 N30.41 [id number] MARCO ALCANTAR PA-C [facility] [address] [place] [address] 04/24/2024 14:00:58 04/24/2024 14:01:27 Acute urinary tract infection 988059634 N39.0 [id number] MARCO ALCANTAR PA-C [facility] [address] [place] [address] 04/30/2024 09:09:26 04/30/2024 10:06:33 Acute urinary tract infection 497103768 N39.0 Chronic cystitis 3342846 2 N30.20 History of radiation therapy 864186481 Z92.3 Dysuria 75675029 R30.0 [id number] SEBASTIÁN GAMING MD RADIATION THERAPY [address] [place] [address] 05/19/2024 09:26:48 06/29/2024 14:28:00 [id number] GUY MERLOS JR, MD [facility] [address] [place] [address] 06/05/2024 09:47:08 06/05/2024 10:16:43 Radiation cystitis 36482291 N30.41 Symptoms align with radiation cystitis post-treat ment for prostate cancer. Discussed hyperbaric oxygen therapy as a management option with probable insurance coverage. Suggested monitoring symptoms, follow up if necessary. Health Concerns Section Related Observation LastModified by Organization Detai ls LastModified Time None Recorded Concern Status LastModified by Organization Details LastModified Time None Recorded Advance Directives Directive None Recorded Payers Insurance Date Sequence Insurance Name Policy Number Policy Frank Covered Member ID Frank Member ID Guarantor Name 04/26/2022 1 [employer] (MEDICARE REPLACEMENT/ ADVANTAGE - PPO) [id number] Cheikh Curtis MEBRZWHZ Cheikh Curtis 06/08/2024 1 [employer] (MEDICARE REPLACEMENT/ ADVANTAGE - PPO) [id number] Cheikh Curtis [id number] Cheikh Curtis 04/26/2022 1 [place] Cheikh Curtis [id number] Cheikh Curtis 04/26/2022 2 [employer]ETNA (POS) [id number] Cheikh Curtis MEBRZWHZ Cheikh Curtis Notes Date Note Type Note Provider Name and Address Organization Details Recorded Time 03/04/2024 text/html patient is in to day for follow-up prostate cancer. He underwent robotic-assisted laparoscopic radical prostatectomy December 05, 2021 pathology report shows adenocarcinoma of the prostate Jarek score 4+3 = 7 with negative lymph nodes and negative margins, stage TIIc. Patient completed radiation therapy July 2022. Patient did have LHRH agonist injection times one. Patient has mild incontinence with one to two pads per day, which are damp Patient is interested in vacuum erection device Patient had gross hematuria episode two weeks ago. This was painless. CT scan without contrast January 2024 shows bilateral small non-obstructing renal stones. Asymptomatic today. GUY MERLOS JR, MD [address] [place] [address] [place], [address], [facility] 03/04/2024 14:27:29 03/13/2024 text/html patient is in to day for follow-up prostate cancer. He underwent robotic-assisted laparoscopic radical prostatectomy December 05, 2021 pathology report shows adenocarcinoma of the prostate Jarek score 4+3 = 7 with negative lymph nodes and negative margins, stage TIIc. Patient completed radiation therapy July 2022. Patient did have LHRH agonist injection times one. Patient has mild incontinence with one to two pads per day, which are damp Patient is interested in vacuum erection device Patient had gross hematuria episode two weeks ago. This was painless. CT scan without contrast January 2024 shows bilateral small non-obstructing renal stones. Asymptomatic today. Cystoscopy with bladder biopsy March 04, 2024 shows chronic cystitis. MD [place] [address], [facility] 03/15/2024 11:36:58 04/30/2024 text/html Patient is a 79-year-old male who presents today for my initial evaluation of lower urinary tract symptoms.He is followed typically by Dr. Merlos for history of prostate cancer. He is status post robotic assisted laparoscopic radical prostatectomy December 05, 2021. Pathology remarkable for adenocarcinoma of the prostate Colfax score 4+3=7 with negative lymph nodes and negative margins, staged TIIc. Patient had episode of gross hematuria in January 2024, CT without contrast demonstrated bilateral small non-obstructing renal stones. Cystoscopy with Dr. Merlos on 03/04/2024 remarkable for chronic cystitis. Today he endorses some mild dysuria, but he otherwise reports no associated symptoms. In office urinalysis suggestive of possible UTI. MARCO ALCANTAR PA-C [address] [place], [address], [facility] 05/07/2024 14:13:09 06/05/2024 text/html patient is in to day for follow-up prostate cancer. He underwent robotic-assisted laparoscopic radical prostatectomy December 05, 2021 pathology report shows adenocarcinoma of the prostate Jarek score 4+3 = 7 with negative lymph nodes and negative margins, stage TIIc. Patient completed radiation therapy July 2022. Patient did have LHRH agonist injection times one. Patient has mild incontinence with one to two pads per day, which are damp Patient is interested in vacuum erection device Patient had gross hematuria episode two weeks ago. This was painless. CT scan without contrast January 2024 shows bilateral small non-obstructing renal stones. Asymptomatic today. Cystoscopy with bladder biopsy March 04, 2024 shows chronic cystitis. The patient is a 79-year-old male presenting for follow-up of prostate cancer. He reports intermittent hematuria beginning May 18, associated with radiation cystitis, evidenced by clear urinalysis results before and after the bleeding episode. Significant blood clot formation, causing concern for potential obstruction, was noted. The patient experiences occasional mild discomfort during urination but does not associate it with significant pain. Hyperbaric oxygen therapy was suggested, with insurance coverage available, to manage recurrent episodes. The patient remains open to monitoring symptoms or pursuing treatment if deemed necessary during subsequent follow-up. GUY MERLOS JR, MD [address], [place], [address], [facility] 06/07/2024 15:26:28
--- OUTSIDE RECORDS SUMMARY | 2024-08-11 13:54 | XMS_ITS | Encounter Summary ---
Author Name [facility] [facility] [place] Address [address] [place] [address] Care Team Providers Care Grit Blaster Name Role Phone ROLAND WISE Primary Care Provider Unavailabl e Insurance Providers: [...] OCCID ENTAL KATHIA Sep 15, 1990 [id number] FLOWERS,B OBBY PATIENT AETNA [facility] (WNR) MEDICARE ADVANTAGE [facility] (WNR) Mar 18, 2018 [id number] MEBRZWH Z FLOWERS,B OBBY PATIENT AETNA [facility] (WNR) MEDICARE ADVANTAGE [facility] (WNR) Mar 18, 2018 [phone] [id number] FLOWERS,B OBBY PATIENT [facility] PRESCRIPT ION NONE Mar 18, 2009 NONE [id number] Shonna FLOWERS OBBY PATIENT MEDICARE (WNR) MEDICARE (M) PART A Jan 17, 2012 PART A [id number] [facility] LIONEL,Shonna OBBY PATIENT MEDICARE (WNR) MEDICARE (M) PART B Jan 17, 2012 PART B [id number] FLOWERS,B OBBY PATIENT MEDICARE PART D (WNR) MEDICARE (M) PART D Mar 18, 2018 PART D [id number] FLOWERS,B OBBY PATIENT Selected Encounter This section includes the information on record at [place] for the Encounter. Date/Time Encounter Type Encounter Description Reason Provider Source Jul 15, 2024 02:24 PM Outpatient Encounter PRIMARY CARE/MEDICINE DUY HOBSON Encounter Template Text not used by [place] Plan of Treatment: Future Appointments (+ 6 months) and Future Tests (+/- 45 days) The Plan of Treatment section includes future care activities for the patient from all [place] [facility] This section includes future appointments and future orders which are active, pending or scheduled. Future Appointments This section includes appointments that were scheduled to occur 6 months from the date of the Encounter, up to a maximum of 20 appointments. The data comes from all [place] treatment facilities. Appointment Date/Time Appointment Type Appointme nt Facility Name July 23, 2024 08:40 AM AMBULATORY - SURGERY [facility] Aug 18, 2024 01:00 PM AMBULATORY - MEDICINE [facility] Active, Pending, and Scheduled Orders This section includes a listing of several types of active, pending, and scheduled orders, including clinic medications orders, diagnostic test orders, procedure orders and consult orders; where the start date of the order is 45 days before the date of the Encounter or 45 days after the date of theEncounter. The data comes from all [place] treatment [facility]. Test Date/Time Test Type Test Details Facility Name July 23, 2024 12:00 AM Laboratory - Chemi [place] Order URINALYSIS WITH REFLEX TO CULTURE URINE [facility] Social History: Smoking Status (Most current) and Tobacco Use (All prior to encounter date) This section includes the most current, and the historical, smoking and tobacco- related health factors from the [place] facility where the Encounter took place. Current Smoking Status This section includes the most current smoking, or tobacco-related health factor, from the [place] facility where the Encounter took place. Date/Time Current Smoking Status Comment Facil ity Dec 31, 2022 08:00 AM VA-TOBACCO NEVER USED [facility] Tobacco Use History This section includes a history of the smoking, or tobacco-related health factors, that were collected on or before the date of the Encounter. The data comes from the [place] facility where the Encounter took place. Date/Time Smoking Status/Tobacco Use Comment Mary Lou hodges Dec 29, 2021 08:30 AM VA-TOBACCO NEVER USED [facility] Dec 29, 2020 08:00 AM VA-TOBACCO NEVER USED [facility] Jan 08, 2020 09:00 AM VA-TOBACCO FORMER USER [facility] Jan 08, 2020 09:00 AM VA-TOBACCO QUIT 15 YRS OR MORE [facility] Nov 24, 2018 01:49 PM VA-TOBACCO NEVER USED [facility] Dec 18, 2017 09:12 AM VA-TOBACCO NEVER USED [facility] Jun 01, 2016 08:52 AM V9 LIFETIME NON-USER OF TOBACCO [facility] Dec 02, 2014 09:26 AM V9 LIFETIME NON-USER OF TOBACCO [facility] Nov 30, 2013 08:47 AM V9 LIFETIME NON-USER OF TOBACCO [facility] Nov 26, 2012 08:03 AM V9 LIFETIME NON-USER OF TOBACCO [facility] Nov 26, 2012 08:03 AM V9 TOBACCO OFFERED [facility] Nov 26, 2011 01:49 PM V9 LIFETIME NON-USER OF TOBACCO [facility] Encounter Notes: All associated encounter notes This section contains the clinical notes associated to the Encounter. Date/Time Encounter Note(s) Provider Source Jul 15, 2024 02:24 PM PRIMARY CARE SECUR E MESSAGING: LOCAL TITLE: PRIMARY CARE SECURE MESSAGING STANDARD TITLE: PRIMARY CARE SECURE MESSAGING DATE OF NOTE: JUL 15, 2024@14:24 ENTRY DATE: JUL 15, 2024@14:24:05 AUTHOR: DUY HOBSON COSIGNER: URGENCY: STATUS: COMPLETED ------Original Message ------ Sent: 07/15/2024 09:18 AM ET From: BERNABE FLOWERS To: [facility] Team ([place] Wise) [facility] [place] Subject: General:Follow up on 06/18/24 email I sent an email to [place] on June 18, requesting a prescription for men incontinence underwear, as a result of my diagnosis in December and February of last year of Chronic Radiation Cystitis (by my outside Urologist Dr. Abrahan MERLOS Jr.). This condition is a result of my radiation treatments for prostate cancer, a service connected Agent [place] exposure disability. I may have mistakenly sent my email to the [facility] team rather than the [facility] team. I have emailed in the past with both teams. My urine leakage become so bad at times the absorbent pads I currently get through a [place] prescription, were/are insufficient to keep me and my outer pants dry, the chairs I sleep in from becoming wet and also the bed I sleep in at times becoming wet, so of the time since last February I wear both the men's incontinence underwear and the absorbent pads, to achieve manageable control of urine leakage. ------Original Message ------ Sent: 07/15/2024 02:23 PM ET From: DYU HOBSON To: BERNABE FLOWERS Subject: General:Follow up on 06/18/24 email I will send this to the PCP /annelise/ DUY HOBSON Signed: 07/15/2024 14:24 DUY HOBSON [facility]
--- OUTSIDE RECORDS SUMMARY | 2024-08-11 13:54 | XMS_ITS | Encounter Summary ---
Author Name [facility] [place] Address [address] [place] [id number] Care Team Providers Care Security Control Assessor Name Role Phone ROLAND OCHOA Primary Care [...] OCCID ENTAL KATHIA Sep 15, 1990 [id number] FLOWERS,B OBBY PATIENT AETNA [facility] (WNR) MEDICARE ADVANTAGE [facility] ([facility] Mar 18, 2018 [id number] MEBRZWH Z [phone] FLOWERS,B OBBY PATIENT AETNA [facility] (WNR) MEDICARE ADVANTAGE [facility] ([facility]) Mar 18, 2018 [phone] [id number] [phone] FLOWERS,B OBBY PATIENT [facility] PRESCRIPT ION NONE Mar 18, 2009 NONE [id number] [phone] FLOWERS,Shonna OBBY PATIENT MEDICARE (WNR) MEDICARE (M) PART A Jan 17, 2012 PART A [id number] LIONEL,B OBBY PATIENT MEDICARE (WNR) MEDICARE (M) PART B Jan 17, 2012 PART B [id number] LIONEL,B OBBY PATIENT MEDICARE PART D (WNR) MEDICARE (M) PART D Mar 18, 2018 PART D [id number] LIONEL,B OBBY PATIENT Selected Encounter This section includes the information on record at [place] for the Encounter. Date/Time Encounter Type Encounter Description Reason Pro vider Source July 17, 2024 01:15 PM Outpatient Encounter ADMIN PAT ACTIVTIES (MASNONCT) [facility] Encounter Template Text not used by [place] Plan of Treatment: Future Appointments (+ 6 months) and Future Tests (+/- 45 days) The Plan of Treatment section includes future care activities for the patient from all [place] treatmentfacilities. This section includes future appointments and future orders which are active, pending or scheduled. Future Appointments This section includes appointments that were scheduled to occur 6 months from the date of the Encounter, up to a maximum of 20 appointments. The data comes from all [place] treatment facilities. Appointment Date/Time Appointment Type Appointme nt Facility Name July 23, 2024 08:40 AM AMBULATORY - SURGERY [facility] Aug 18, 2024 01:00 PM AMBULATORY - MEDICINE [facility] Active, Pending, and Scheduled Orders This section includes a listing of several types of active, pending, and scheduled orders, including clinic medications orders, diagnostic test orders, procedure orders and consult orders; where the start date of the order is 45 days before the date of the Encounter or 45 days after the date of theEncounter. The data comes from all [place] treatment [facility]. Test Date/Time Test Type Test Details Facility Name July 23, 2024 12:00 AM Laboratory - Chemi stry Order URINALYSIS WITH REFLEX TO CULTURE URINE SP ONCE [facility] Encounter Notes: All associated encounter notes This section contains the clinical notes associated to the Encounter. Date/Time Encounter Note(s) Provider Source July 17, 2024 01:16 PM PRIMARY CARE FARA RS: LOCAL TITLE: PC LETTER FOLLOW UP/PAST RECALL/INACTIVE STANDARD TITLE: PRIMARY CARE LETTERS DATE OF NOTE: JULY 17, 2024@13:16 ENTRY DATE: JULY 17, 2024@13:16:11 AUTHOR: BUCK BRADEN EXP COSIGNER: URGENCY: STATUS: COMPLETED [facility] [address] [place] [address] [facility] [address] [place] [address] Mr. BERNABE FLOWERS [address] [place], [place] [address] JULY 17, 2024 Dear Mr. BERNABE FLOWERS, Our Records indicate you are past due for an appointment in primary care. We value you as a patient, and are concerned about your overall health. Patients are encouraged to see their Primary Care Provider annually to maintain their health care needs. If you would like to be seen and maintain enrollment in Primary Care, please contact our Telephone Care Program at or local [phone] to schedule an appointment. If you do not wish to be seen, please call the same number listed above, and let us know. We look forward to hearing from you soon. Sincerely, /annelise/ BUCK BRADEN [employer]VANCED BELT MOLDER Patient Record Number [id number] BUCK BRADEN-CDD [facility]
--- OUTSIDE RECORDS SUMMARY | 2024-08-11 13:54 | XMS_ITS | Encounter Summary ---
Author Name [facility] [place] [facility] [place] [facility] [place] [facility] [place] Address [address] [place] [address] Care Team Providers Care Soft Work Wrapper Examiner Name Role Phone ROLAND OCHOA Primary Care [...] OCCID ENTAL KATHIA Sep 15, 1990 [id number] FLOWERS,B OBBY PATIENT AETNA [facility] (WNR) MEDICARE ADVANTAGE [facility] (WNR) Mar 18, 2018 [id number] MEBRZWH Z FLOWERS,B OBBY PATIENT AETNA [facility] (WNR) MEDICARE ADVANTAGE [facility] (WNR) Mar 18, 2018 [phone] [id number] FLOWERS,B OBBY PATIENT [facility] PRESCRIPT ION NONE Mar 18, 2009 NONE [id number] [phone] Shonna FLOWERS OBBY PATIENT MEDICARE (WNR) MEDICARE (M) PART A Jan 17, 2012 PART A [id number] LIONEL,Shonna OBBY PATIENT MEDICARE (WNR) MEDICARE (M) PART B Jan 17, 2012 PART B [id number] LIONEL,B OBBY PATIENT MEDICARE PART D (WNR) MEDICARE (M) PART D Mar 18, 2018 PART D [id number] FLOWERS,B OBBY PATIENT Selected Encounter This section includes the information on record at [place] for the Encounter. Date/Time Encounter Type Encounter Description Reason Pro vider Source Jun 19, 2024 09:04 AM Outpatient Encounter PRIMARY CARE/MEDICINE IHE Encounter Template Text not used by [place] Plan of Treatment: Future Appointments (+ 6 months) and Future Tests (+/- 45 days) The Plan of Treatment section includes future care activities for the patient from all [place] treatmentfacilities. This section includes future appointments and future orders which are active, pending or scheduled. Future Appointments This section includes appointments that were scheduled to occur 6 months from the date of the Encounter, up to a maximum of 20 appointments. The data comes from all [place] treatment [facility]. Appointment Date/Time Appointment Type Appointme nt Facility Name July 23, 2024 08:40 AM [facility] Aug 18, 2024 01:00 PM [facility] Active, Pending, and Scheduled Orders This section includes a listing of several types of active, pending, and scheduled orders, including clinic medications orders, diagnostic test orders, procedure orders and consult orders; where the start date of the order is 45 days before the date of the Encounter or 45 days after the date of theEncounter. The data comes from all [place] treatment [facility]. Test Date/Time Test Type Test Details Facility Name July 23, 2024 12:00 AM Laboratory - Chemi strkendell Order URINALYSIS WITH REFLEX TO CULTURE URINE [facility] Social History: Smoking Status (Most current) and Tobacco Use (All prior to encounter date) This section includes the most current, and the historical, smoking and tobacco- related health factors from the [place] facility where the Encounter took place. Current Smoking Status This section includes the most current smoking, or tobacco-related health factor, from the [place] facility where the Encounter took place. Date/Time Current Smoking Status Comment Facil ity Dec 31, 2022 08:00 AM VA-TOBACCO NEVER USED [facility] Tobacco Use History This section includes a history of the smoking, or tobacco-related health factors, that were collected on or before the date of the Encounter. The data comes from the [place] facility where the Encounter took place. Date/Time Smoking Status/Tobacco Use Comment [facility] Dec 29, 2021 08:30 AM VA-TOBACCO NEVER USED [facility] Dec 29, 2020 08:00 AM VA-TOBACCO NEVER USED [facility] Jan 08, 2020 09:00 AM VA-TOBACCO FORMER USER [facility] Jan 08, 2020 09:00 AM VA-TOBACCO QUIT 15 YRS OR MORE [facility] Nov 24, 2018 01:49 PM VA-TOBACCO NEVER USED [facility] Dec 18, 2017 09:12 AM VA-TOBACCO NEVER USED [facility] Jun 01, 2016 08:52 AM V9 LIFETIME NON-USER OF TOBACCO [facility] Dec 02, 2014 09:26 AM V9 LIFETIME NON-USER OF TOBACCO [facility] Nov 30, 2013 08:47 AM V9 LIFETIME NON-USER OF TOBACCO [facility] Nov 26, 2012 08:03 AM V9 LIFETIME NON-USER OF TOBACCO [facility] Nov 26, 2012 08:03 AM V9 TOBACCO OFFERED [facility] Nov 26, 2011 01:49 PM V9 LIFETIME NON-USER OF TOBACCO [facility] Encounter Notes: All associated encounter notes This section contains the clinical notes associated to the Encounter. Date/Time Encounter Note(s) Provider Source Jun 19, 2024 09:19 AM ADDENDUM: LOCAL TITLE: Addendum STANDARD TITLE: ADDENDUM DATE OF NOTE: JUN 19, 2024@09:19:03 ENTRY DATE: JUN 19, 2024@09:19:04 AUTHOR: ROLAND OCHOA COSIGNER: URGENCY: STATUS: COMPLETED forwarding to ordering provider, thanks /annelise/ ROLAND OCHOA M.D. PRIMARY CARE STAFF PHYSICIAN Signed: 06/19/2024 09:19 Receipt Acknowledged By: 06/23/2024 08:02 /annelise/ ZAHIDA POLO NURSE PRACTIONER --- Original Document --- 06/19/24 PRIMARY CARE SECURE MESSAGING: ------Original Message ---- Sent: 06/18/2024 04:25 PM ET From: BERNABE FLOWERS To: ALPHA Team (Lesli) [facility] [place] Subject: General:Prescription for mens incontinence Underwear As mentioned above, I was diagnosed by my outside Urologist Dr. Abrahan MERLOS Jr. 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 MERLOS at the [facility] on Mar 04, 2024. Since that time the underwear liner pads are totally insufficient. To control my bladder leakage volume, I now must wear men's incontinence underwear AND ALSO the incontinence liner pads daily (and nightly) in order to keep my outer pants dry, the seats and chairs I set in dry, and my bed mattress dry at night. An additional prescription would be helpful, given the volume of mens incontinence underwear that I use on a daily basis. /annelise/ Mindy CHAN Signed: 06/19/2024 09:04 Receipt Acknowledged By: 06/19/2024 09:19 /annelise/ ROLAND OCHOA M.D. PRIMARY CARE STAFF PHYSICIAN [facility]AND [facility]CHOA [facility] Jun 19, 2024 09:04 AM PRIMARY CARE SECUR E MESSAGING: LOCAL TITLE: PRIMARY CARE SECURE MESSAGING STANDARD TITLE: PRIMARY CARE SECURE MESSAGING DATE OF NOTE: JUN 19, 2024@09:04 ENTRY DATE: JUN 19, 2024@09:04:42 AUTHOR: MINDY ANGELO EXP COSIGNER: URGENCY: STATUS: COMPLETED PRIMARY CARE SECURE MESSAGING Has ADDENDA ------Original Message ---- Sent: 06/18/2024 04:25 PM ET From: BERNABE FLOWERS To: JAMI Team (Lesli) [facility] [place] Subject: General:Prescription for mens incontinence Underwear As mentioned above, I was diagnosed by my outside Urologist Dr. Abrahan MERLOS Jr. 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 MERLOS at the [facility] on Mar 04, 2024. Since that time the underwear liner pads are totally insufficient. To control my bladder leakage volume, I now must wear men's incontinence underwear AND ALSO the incontinence liner pads daily (and nightly) in order to keep my outer pants dry, the seats and chairs I set in dry, and my bed mattress dry at night. An additional prescription would be helpful, given the volume of mens incontinence underwear that I use on a daily basis. /annelise/ Mindy CHAN Signed: 06/19/2024 09:04 Receipt Acknowledged By: 06/19/2024 09:19 /lynn OCHOA M.D. PRIMARY CARE STAFF PHYSICIAN 06/19/2024 ADDENDUM STATUS: COMPLETED forwarding to ordering provider, thanks /lynn OCHOA M.D. PRIMARY CARE STAFF PHYSICIAN Signed: 06/19/2024 09:19 Receipt Acknowledged By: * AWAITING SIGNATURE * ZAHIDA POLO LOLA A [facility]
--- OUTSIDE RECORDS SUMMARY | 2024-08-11 13:54 | XMS_ITS | Encounter Summary ---
Author Name [facility] [place] Organization [facility] [place] [facility] [place] Address [address] [place] [id number] Care Team Providers Care Scraper Operator Name Role Phone ROLAND OCHOA Primary Care Provider Unavailroxy e Insurance Providers: All historical and current [...] OCCID ENTAL KATHIA Sep 15, 1990 [id number] FLOWERS,B OBBY PATIENT AETNA [facility] (WNR) MEDICARE ADVANTAGE [facility] ([facility] Mar 18, 2018 [id number] MEBRZWH [id number] [phone] FLOWERS,B OBBY PATIENT AETNA [facility] (WNR) MEDICARE ADVANTAGE [facility] ([facility] Mar 18, 2018 [phone] [id number] FLOWERS,B OBBY PATIENT [facility] PRESCRIPT ION NONE Mar 18, 2009 NONE [id number] LIONEL,Shonna OBBY PATIENT MEDICARE (WNR) MEDICARE (M) PART A Jan 17, 2012 PART A [id number] LIONEL,B OBBY PATIENT MEDICARE (WNR) MEDICARE (M) PART B Jan 17, 2012 PART B [id number] FLOWERS,B OBBY PATIENT MEDICARE PART D (WNR) MEDICARE (M) PART D Mar 18, 2018 PART D [id number] FLOWERS,B OBBY PATIENT Selected Encounter This section includes the information on record at [place] for the Encounter. Date/Time Encounter Type Encounter Description Reason Provider Source July 23, 2024 08:40 AM OFFICE O/P EST LOW 20 MIN UROLOGY CLINIC ICD-10-CM C61 Malignant neoplasm of prostate MABEL POLO [facility] Encounter Template Text not used by MD Assessments - Encounter Diagnoses This section includes the primary and secondary diagnoses documented for the Encounter. Date/Time Primary/Secondary Diagnosis Diagnosis Name Provider Source July 23, 2024 04:36 PM PRIMARY Malignant neoplasm of prostate ZAHIDA POLO [facility] July 23, 2024 04:36 PM SECONDARY Other male erectile dysfunction ZAHIDA POLO [facility] Plan of Treatment: Future Appointments (+ 6 months) and Future Tests (+/- 45 days) The Plan of Treatment section includes future care activities for the [facility] This section includes future appointments and future orders which are active, pending or scheduled. Future Appointments This section includes appointments that were scheduled to occur 6 months from the date of the Encounter, up to a maximum of 20 appointments. The data comes from all MD treatment facilities. Appointment Date/Time Appointment Type Appointme nt Facility Name Aug 18, 2024 01:00 PM AMBULATORY - MEDICINE [facility] Active, Pending, and Scheduled Orders This section includes a listing of several types of active, pending, and scheduled orders, including clinic medications orders, diagnostic test orders, procedure orders and consult orders; where the start date of the order is 45 days before the date of the Encounter or 45 days after the date of theEncounter. The data comes from all MD treatment [facility]. Test Date/Time Test Type Test Details Facility Name July 23, 2024 12:00 AM Laboratory - Chemi stry Order URINALYSIS WITH REFLEX TO CULTURE URINE SP [facility] Encounter Notes: All associated encounter notes This section contains the clinical notes associated to the Encounter. Date/Time Encounter Note(s) Provider Source July 23, 2024 10:05 AM SURGERY NURSING NO TE: LOCAL TITLE: SURGERY CLINIC INTAKE NOTE STANDARD TITLE: SURGERY NURSING NOTE DATE OF NOTE: JULY 23, 2024@10:05 ENTRY DATE: JULY 23, 2024@10:05:30 AUTHOR: JEAN POLO EXP COSIGNER: URGENCY: STATUS: COMPLETED The patient was given a list of his/her medications, instructed to review and discuss any changes or problems with their provider. Patient advised to carry a list of current medications and any allergies with them in the event of emergency situations. Allergies: local and remote LISINOPRIL No Remote Allergy/ADR Data available for this patient Medication Reconciliation MRR1 - Med Reconciliation INCLUDED IN THIS LIST: Alphabetical list of active outpatient prescriptions dispensed from this MD (local) and dispensed from another MD or [facility] facility (remote) as well as inpatient orders (local pending and active), local clinic medications, locally documented non-VA medications, and local prescriptions that have or been discontinued in the past 90 days. Non-VA Meds Last Documented On: Jan 01, 2023 NOTE The display of VA prescriptions dispensed from another MD or [facility] facility (remote) is limited to active outpatient prescription entries matched to National Drug File at the originating site and may not include some items such as investigational drugs, compounds, etc. NOT INCLUDED IN THIS LIST: Medications self-entered by the patient into personal health records (i.e. [facility]) are NOT included in this list. Non-VA medications documented outside this MD, remote inpatient orders (regardless of status) and remote clinic medications are NOT included in this list. The patient and provider must always discuss medications the patient is taking, regardless of where the medication was dispensed or obtained. Non-VA ASPIRIN 81MG EC TAB TAKE ONE TABLET BY MOUTH DAILY Patient wants to buy from Non-VA pharmacy. Medication prescribed by Non-VA provider. Non-VA BUSPIRONE HCL 10MG TAB TAKE ONE TABLET BY MOUTH BEDTIME Patient wants to buy from Non-VA pharmacy. Medication prescribed by Non-VA provider. Indication: FOR ANXIETY Non-VA CHOLECALCIF 25MCG (D3-1,000UNIT) TAB TAKE ONE TABLET BY MOUTH DAILY Patient wants to buy from Non-VA pharmacy. Medication prescribed by Non-VA provider. Indication: FOR VITAMIN D SUPPLEMENT Non-VA METOPROLOL SUCCINATE 25MG SA TAB TAKE ONE-HALF TABLET BY MOUTH DAILY Medication prescribed by Non-VA provider. Indication: FOR BLOOD PRESSURE Non-VA NITROGLYCERIN 0.4MG SL TAB DISSOLVE ONE TABLET UNDER THE TONGUE EVERY 5 MINUTES UP TO 3 DOSES Patient wants to buy from Non-VA pharmacy. Medication prescribed by Non-VA provider. Non-VA OMEPRAZOLE 20MG EC CAP TAKE 1 CAPSULE BY MOUTH DAILY Patient wants to buy from Non-VA pharmacy. Medication prescribed by Non-VA provider. Non-VA SIMVASTATIN 80MG TAB TAKE ONE-HALF TABLET BY MOUTH AT BEDTIME Patient wants to buy from Non-VA pharmacy. Medication prescribed by Non-VA provider. Non-VA TEST ITEM TAB TAKE BY MOUTH DAILY Patient wants to buy from Non-VA pharmacy. Medication prescribed by Non-VA provider. Non-VA VEDOLIZUMAB INJ,LYPHL INJECT Patient wants to buy from Non-MD pharmacy. Medication prescribed by Non-VA provider. SUPPLIES OUTPT BRIEF,TRANQ MEHDI OVERN[facility] M#2114 PULLUP (Status = Pending) BRIEF,TRANQ [facility] M#2114 PULLUP USE 1 BRIEF DIRECTED THREE TIMES A DAY Login Date: 07/23/24 Qty/Days Supply: 216/90 Refills Ordered: 3 OUTPT INCONT LINER PREVAIL GUARDS #[id number] (Status = Active) USE LINER DIRECTED THREE TIMES A DAY FOR INCONTINENCE Rx# [id number] Last Released: 04/13/24 Qty/Days Supply: 378/90 Rx Expiration Date: 12/20/24 Refills Remainin Indication: FOR INCONTINENCE /annelies/ JEAN POLO Ancillary Area Representative Signed: 07/23/2024 10:05 JEAN POLO [facility] July 23, 2024 10:05 AM SURGERY NOTE: LOCAL TITLE: BOO FRAILTY TOOL STANDARD TITLE: SURGERY NOTE DATE OF NOTE: JULY 23, 2024@10:05 ENTRY DATE: JULY 23, 2024@10:06:09 AUTHOR: JEAN POLO EXP COSIGNER: URGENCY: STATUS: COMPLETED FRAILTY CALCULATION: Risk Analysis Index (BOO) score is: Score: 42 indicated history of cancer: The BOO Score (without cancer) is: Score w/o cancer: 31 Variable Score Sex: 3 Cancer Status: Yes Age*Cancer Status: 37 Weight Loss: 0 Poor Appetite: 4 Renal Insufficiency: 0 Chronic/Congestive Heart Failure: 0 Shortness of Breath: 0 Dependent Livin Cognitive Decline: No ADL*Cognitive Decline: 0 Mobility: Can get around without any help Eating: Can plan and prepare his/her own meals Toileting: Can use the toilet without help Personal Hygiene: Can shower or bathe without prompting or help BOO Score: 42 BOO Score (without Cancer): 31 /annelise/ JEAN POLO Ancillary Area Representative Signed: 07/23/2024 10:08 JEAN POLO [facility] July 23, 2024 09:01 AM UROLOGY NURSE PRAC TITIONER NOTE: LOCAL TITLE: UROLOGY CLINIC NURSE PRACTITIONER NOTE STANDARD TITLE: UROLOGY NURSE PRACTITIONER NOTE DATE OF NOTE: JULY 23, 2024@09:01 ENTRY DATE: JULY 23, 2024@09:01:37 AUTHOR: ZAHIDA POLO EXP COSIGNER: URGENCY: STATUS: COMPLETED CC: Prostate cancer with prostatectomy and salvage radiation. S-79yo vet presents to clinic with a hx of CaP s/p prostatectomy w/salvage radiation outside Urologist Dr. Abrahan MERLOS Jr. 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 MERLOS at the [facility] on Mar 04, 2024. Since that time the underwear liner pads are totally insufficient to control my bladder leakage. He is now buying depends to try to control the leakage. Denies any further LUTS. Patient also with erectile dysfunction, but at this time he is not concerned with treatment. ALLERGIES: LISINOPRIL Exam: NAD Alert and oriented x3 SKIN:No Lesions,pink,warm,dry and intact w/good skin turgor. : No exam. LAB:Z PROSTATIC ANTIGEN - NONE FOUND IMPRESSION:-History of prostate cancer,s/p prostatectomy and salvage radiation no Evidence of disease per patient -Erectile dysfunction PLAN:-Medications reviewed w/pt and they verbilize no change. -He is being followed by Dr. Marcus for his prostate cancer. He is inquiring about ordering the depends through the MD. I also gave him a Lewis clamp and taught him how to use it and informed him to release the clamp every 2 hours at least. -F/U in 6 months with PSA Approximately 20 minutes spent with the today reviewing medical history, examining patient, and discussing treatment plans including patient education and coaching. The voiced understanding of our discussion. 50% of visit time was spent counselling the on meds and lifestyle changes. Reviewed and reconciled her medication list, and provided an updated list of medications. /annelise/ ZAHIDA POLO NURSE PRACTIONER Signed: 07/23/2024 16:36 ZAHIDA POLO-CDD [facility]
--- OUTSIDE RECORDS SUMMARY | 2024-08-11 13:54 | XMS_ITS | Continuity of Care Document ---
Author Name [facility] Organization [facility] Care Team Providers Care Associate Automation Engineer Name Role Phone [facility] Unavailable Unavailable Problems Combined list of problems from Department of Defense and [facility] Affairs facilities. It does not include entries that were removed or entered in error. 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[facility] disease Active Condition [place] [facility] Elevated PSA Active Condition [facility] Erectile dysfunction Active Condition [facility] Exposure to potentially hazardous substance (SCT [id number]) Active Condition [facility] Gastroesophageal reflux disease Active Condition [facility] Gastroesophageal reflux disease (SNOMED CT 150473561) Active Condition [facility] Hyperlipidemia Active Condition [place] [facility] Hyperlipidemia (SNOMED CT 86075491) Active Condition [facility] Hypertension Active Condition [facility] Hypertension (SNOMED CT [id number]) Active Condition [facility] Low back pain Active Condition [facility] Migraine, unspecified, without mention of Intractable Migraine without mention o Active Condition [place] [facility] Neck Pain (ICD-9-CM 723.1) Active Condition [facility] Pain of bilateral knee joints Active Condition [facility] Plantar fasciitis Active Condition [facility] Diagnosis: ICD-10-CM C61 Malignant neoplasm of prostate Active Diagnosis [facility] Diagnosis: ICD-10-CM M54.50 Low back pain, unspecified Active Diagnosis [place] [facility] Medications Combined list of outpatient medications from [facility] and [facility] facilities.Medications provided include 1) outpatient medications from the last 15 months, and 2) patient-reported medications. Medication Details Route Status Patient Instructions Prescription Expires Prescription Number Last Dispense Date Ordering Provider Order Date Order Qty Source ASPIRIN 81MG TAB,EC TAKE ONE TABLET BY MOUTH DAILY ORAL ACTIVE OCHOA,ANTONIA RODRIGUEZ R 2012 [place] [facility] BUSPIRONE HCL 10MG TAB TAKE ONE TABLET BY MOUTH BEDTIME ORAL ACTIVE KOUSA,KIT TA 2022 [place] [facility] CHOLECALCIF YENNY 25MCG (1,000UNIT) TAB TAKE ONE TABLET BY MOUTH DAILY ORAL ACTIVE KOUSA,KIT TA 2022 [place] [facility] METOPROLOL SUCCINATE 25MG TAB,SA TAKE ONE-HALF TABLET BY MOUTH DAILY ORAL ACTIVE KOUSA,KIT TA 2022 [place] [facility] NITROGLYCER IN 0.4MG SL TAB DISSOLVE ONE TABLET UNDER THE TONGUE EVERY 5 MINUTES UP TO 3 DOSES SUBLIN GUAL ACTIVE OCHOA,ANTONIA EK R 2011 [place] [facility] OMEPRAZOLE 20MG CAP,EC TAKE 1 CAPSULE BY MOUTH DAILY ORAL ACTIVE OCHOA,ANTONIA EK R 2013 [place] [facility] SIMVASTATIN 80MG TAB TAKE ONE-HALF TABLET BY MOUTH AT BEDTIME ORAL ACTIVE OCHOA,ANTONIA EK R 2011 [place] [facility] VEDOLIZUMAB INJ,LYPHL INJECT ACTIVE OCHOA,ANTONIA EK R 2018 [place] [facility] VITAMINS,TH ERAPEUTIC TAB TAKE BY MOUTH DAILY ORAL ACTIVE OCHOA,ANTONIA EK R 2011 [place] [facility] Allergies, Adverse Reactions, Alerts Combined list of allergies from [facility] and [facility] facilities. It does not include entries that were removed or entered in error. Substance Category Reaction Severity Reaction type Status Date Reported Comments Source LISINOPRIL Propensity to adverse reactions to drug (finding) [facility] Immunizations Combined list of available immunizations from the Department of [facility] and [facility] facilities. Immunization Series Date Given Administered By Site Reaction Lot Number CVX Code Drug Airways Control Specialist Status Comments Source INFLUENZA, HIGH-DOSE, TRIVALENT, PF 7 2023 135 complet ed HISTORICA L INFORMATI ON - FROM OTHER REGISTRY, [place] [facility] TDAP 2023 LEFTY PEÑA RIGHT DELTO ID [id number] 115 complet ed Completed Series, ADMINISTE RED AT SC, [place] [facility] INFLUENZA, HIGH-DOSE, QUADRIVALENT 6 2022 197 complet ed HISTORICA L INFORMATI ON - FROM OTHER REGISTRY, [place] [facility] INFLUENZA, HIGH-DOSE, QUADRIVALENT 5 2021 197 complet ed HISTORICA L INFORMATI ON - FROM OTHER REGISTRY, [place] [facility] COVID-19 (Storyz), MRNA, LNP-S, PF, 30 MCG/0.3 ML DOSE 3 2020 208 complet ed [place] [facility] PNEUMOCOCCAL CONJUGATE PCV 13 2 2020 133 complet ed HISTORICA L INFORMATI ON - FROM OTHER REGISTRY, [place] [facility] INFLUENZA, HIGH-DOSE, QUADRIVALENT 4 2020 197 complet ed HISTORICA L INFORMATI ON - FROM OTHER REGISTRY, [place] [facility] COVID-19 (Storyz), MRNA, LNP-S, PF, 30 MCG/0.3 ML DOSE 2 2020 208 complet ed HISTORICA L INFORMATI ON - FROM OTHER REGISTRY, [place] [facility] COVID-19 (Storyz), MRNA, LNP-S, PF, 30 MCG/0.3 ML DOSE 1 2020 208 complet ed HISTORICA L INFORMATI ON - FROM OTHER REGISTRY, [place] [facility] INFLUENZA VACCINE, QUADRIVALENT, ADJUVANTED 3 2019 205 complet ed HISTORICA L INFORMATI ON - FROM OTHER REGISTRY, [place] [facility] INFLUENZA, UNSPECIFIED FORMULATION 2019 88 complet ed [facility] PNEUMOCOCCAL POLYSACCHARID E PPV23 1 2019 33 complet ed HISTORICA L INFORMATI ON - FROM OTHER REGISTRY, [place] [facility] INFLUENZA, INJECTABLE, QUADRIVALENT, PRESERVATIVE FREE 2018 150 complet ed [place] [facility] INFLUENZA, HIGH DOSE SEASONAL 2 2017 135 complet ed HISTORICA L INFORMATI ON - FROM OTHER REGISTRY, [place] [facility] INFLUENZA, SEASONAL, INJECTABLE 2017 141 complet ed [place] [facility] INFLUENZA, HIGH DOSE SEASONAL 1 2016 135 complet ed HISTORICA L INFORMATI ON - FROM OTHER REGISTRY, [place] [facility] INFLUENZA A & B (HISTORICAL) 2015 88 complet ed [place] [facility] INFLUENZA A & B (HISTORICAL) 2014 88 complet ed [place] [facility] FLU,3 YRS (HISTORICAL) 2013 88 complet ed [place] [facility] INFLUENZA A & B (HISTORICAL) 2011 88 complet ed [place] [facility] TDAP 2011 115 complet ed [place] [facility] PNEUMOCOCCAL, UNSPECIFIED FORMULATION 2011 109 complet ed [place] [facility] TDAP 1 2011 115 complet ed HISTORICA L INFORMATI ON - FROM OTHER REGISTRY, [place] [facility] TD(ADULT) UNSPECIFIED FORMULATION 2006 139 complet ed [place] [facility] TDAP (HISTORICAL) 2006 115 complet ed [place] [facility] Results Combined list of recent chemistry, hematology and other laboratory results from Department of Defense and Veterans Affairs, ranging from 15 months to all on record, depending upon the facility. Order Name Results Value Reference Range Date Interpretation Specimen Comments Source URINALYS IS COLOR OF URINE Yellow 12/31 Specimen Type: URINE Comment: Microscopic not indicated Ordering Provider: LOLA CHAPMAN Report Released Date/Time: Dec 31, 2022 08:56 AM Reporting Lab: [facility] [address] [address] Performing Lab: [facility] [address] [address] [facility] URINALYS IS APPEARANCE OF URINE Clear 12/31 Specimen Type: URINE Comment: Microscopic not indicated Ordering Provider: LOLA CHAPMAN Report Released Date/Time: Dec 31, 2022 08:56 AM Reporting Lab: [address] [address] Performing Lab: [address] [address] [facility] URINALYS IS UROBILINOG EN [MASS/VOLU ME] IN URINE BY TEST STRIP Normalmg /dL 12/31 Specimen Type: URINE Comment: Microscopic not indicated Ordering Provider: LOLA CHAPMAN Report Released Date/Time: Dec 31, 2022 08:56 AM Reporting Lab: [address] [address] Performing Lab: [address] [address] [facility] URINALYS IS HEMOGLOBIN [PRESENCE] IN URINE BY TEST STRIP Negative 12/31 Specimen Type: URINE Comment: Microscopic not indicated Ordering Provider: LOLA CHAPMAN Report Released Date/Time: Dec 31, 2022 08:56 AM Reporting Lab: [address] [address] Performing Lab: [address] [address] [facility] URINALYS IS BILIRUBIN. TOTAL [PRESENCE] IN URINE BY TEST STRIP Negative 12/31 Specimen Type: URINE Comment: Microscopic not indicated Ordering Provider: LOLA CHAPMAN Report Released Date/Time: Dec 31, 2022 08:56 AM Reporting Lab: [address] [address] Performing Lab: [address] [address] [facility] URINALYS IS KETONES [MASS/VOLU ME] IN URINE BY TEST STRIP Negative mg/dL 12/31 Specimen Type: URINE Comment: Microscopic not indicated Ordering Provider: LOLA CHAPMAN Report Released Date/Time: Dec 31, 2022 08:56 AM Reporting Lab: [address] [address] Performing Lab: [address] [address] [facility] URINALYS IS PROTEIN [MASS/VOLU ME] IN URINE BY TEST STRIP Negative mg/dL 12/31 Specimen Type: URINE Comment: Microscopic not indicated Ordering Provider: LOLA CHAPMAN Report Released Date/Time: Dec 31, 2022 08:56 AM Reporting Lab: [address] [address] Performing Lab: [address] [address] [facility] URINALYS IS PH OF URINE BY TEST STRIP 6.0 4.5 - 8.0 12/31 Specimen Type: URINE Comment: Microscopic not indicated Ordering Provider: LOLA CHAPMAN Report Released Date/Time: Dec 31, 2022 08:56 AM Reporting Lab: [address] [address] Performing Lab: [address] [address] [facility] URINALYS IS NITRITE [PRESENCE] IN URINE BY TEST STRIP Negative 12/31 Specimen Type: URINE Comment: Microscopic not indicated Ordering Provider: LOLA CHAPMAN Report Released Date/Time: Dec 31, 2022 08:56 AM Reporting Lab: [address] [address] Performing Lab: [address] [address] [facility] URINALYS IS LEUKOCYTE ESTERASE [PRESENCE] IN URINE BY TEST STRIP Negative 12/31 Specimen Type: URINE Comment: Microscopic not indicated Ordering Provider: LOLA CHAPMAN Report Released Date/Time: Dec 31, 2022 08:56 AM Reporting Lab: [address] [address] Performing Lab: [address] [address] [facility] URINALYS IS SPECIFIC GRAVITY OF URINE 1.019 1.005 - 1.030 12/31 Specimen Type: URINE Comment: Microscopic not indicated Ordering Provider: LOLA CHAPMAN Report Released Date/Time: Dec 31, 2022 08:56 AM Reporting Lab: [address] [address] Performing Lab: [address] [address] [facility] URINALYS IS GLUCOSE [MASS/VOLU ME] IN URINE BY TEST STRIP Negative mg/dL 12/31 Specimen Type: URINE Comment: Microscopic not indicated Ordering Provider: LOLA CHAPMAN Report Released Date/Time: Dec 31, 2022 08:56 AM Reporting Lab: [address] [address] Performing Lab: [address] [address] [facility] URIC ACID URATE [MASS/VOLU ME] IN SERUM OR PLASMA 4.8 mg/dL 3.5 - 7.2 12/31 Specimen Type: PLASMA Comment: Estimated Glomerular Filtration Rate (eGFR) calculated using the 2020 Chronic Kidney Disease-Epi demiology (CKD-EPI) Collaborati on creatinine equation; units of measure are mL/min/1.73 m2. Results are only valid for adults (>=18 years) whose serum creatinine is in a steady state. eGFR calculation s are not valid for patients with acute kidney injury and for patients on dialysis. Creatinine- based estimates of kidney function may also be inaccurate in patients with reduced creatinine generation due to decreased muscle mass (e.g., malnutritio n, severe hypoalbumin emia, sarcopenia, chronic neuromuscul ar disease, amputations , severe heart failure or liver disease) and in patients with increased creatinine generation due to increased muscle mass (e.g., muscle builders, anabolic steroids) or increased dietary intake. As drug clearance is proportiona l to total GFR and not GFR indexed to body surface area (BSA), in individuals with a BSA substantial ly different than 1.73 m2, drug dosing should be based on the reported eGFR value de-indexed from BSA by multiplying by the individual' s BSA and dividing by 1.73. CKD is diagnosed based on abnormaliti es of kidney structure or function, present for >3 months, with implication s for health and disease. CKD is classified and staged based on cause, eGFR and albuminuria (quantified as urine albumin to creatinine ratio). An eGFR >60 mL/min/1.73 m2 in the absence of increased urine albumin excretion or structural abnormaliti es does not represent CKD. eGFR CKD Interpretat ion (mL/min/1.7 3 m2) stage >=90 G1 Normal 60-89 G2 Mild decrease 45-59 G3A Mild to moderate decrease 30-44 G3B Moderate to severe decrease 15-29 G4 Severe decrease <15 G5 Kidney failure Ordering Provider: LOLA CHAPMAN Report Released Date/Time: Dec 31, 2022 08:56 AM Reporting Lab: [facility] [address] [address] Performing Lab: [facility] [address] [address] [facility] B12 VITAMIN COBALAMIN (VITAMIN B12) [MASS/VOLU ME] IN SERUM OR PLASMA 400 pg/mL 213 - 816 12/31 Specimen Type: PLASMA Comment: Estimated Glomerular Filtration Rate (eGFR) calculated using the 2020 Chronic Kidney Disease-Epi demiology (CKD-EPI) Collaborati on creatinine equation; units of measure are mL/min/1.73 m2. Results are only valid for adults (>=18 years) whose serum creatinine is in a steady state. eGFR calculation s are not valid for patients with acute kidney injury and for patients on dialysis. Creatinine- based estimates of kidney function may also be inaccurate in patients with reduced creatinine generation due to decreased muscle mass (e.g., malnutritio n, severe hypoalbumin emia, sarcopenia, chronic neuromuscul ar disease, amputations , severe heart failure or liver disease) and in patients with increased creatinine generation due to increased muscle mass (e.g., muscle builders, anabolic steroids) or increased dietary intake. As drug clearance is proportiona l to total GFR and not GFR indexed to body surface area (BSA), in individuals with a BSA substantial ly different than 1.73 m2, drug dosing should be based on the reported eGFR value de-indexed from BSA by multiplying by the individual' s BSA and dividing by 1.73. CKD is diagnosed based on abnormaliti es of kidney structure or function, present for >3 months, with implication s for health and disease. CKD is classified and staged based on cause, eGFR and albuminuria (quantified as urine albumin to creatinine ratio). An eGFR >60 mL/min/1.73 m2 in the absence of increased urine albumin excretion or structural abnormaliti es does not represent CKD. eGFR CKD Interpretat ion (mL/min/1.7 3 m2) stage >=90 G1 Normal 60-89 G2 Mild decrease 45-59 G3A Mild to moderate decrease 30-44 G3B Moderate to severe decrease 15-29 G4 Severe decrease <15 G5 Kidney failure Vitamin B12 test may not yield results when protein level of sample is too elevated. Ordering Provider: LOAL CHAPMAN Report Released Date/Time: Dec 31, 2022 08:56 AM Reporting Lab: [facility] [address] [address] Performing Lab: [facility] [address] [address] [facility] LIPID PROFILE CHOLESTERO L [MASS/VOLU ME] IN SERUM OR PLASMA 184 mg/dL 0 - 199 12/31 Specimen Type: PLASMA Comment: Estimated Glomerular Filtration Rate (eGFR) calculated using the 2020 Chronic Kidney Disease-Epi demiology (CKD-EPI) Collaborati on creatinine equation; units of measure are mL/min/1.73 m2. Results are only valid for adults (>=18 years) whose serum creatinine is in a steady state. eGFR calculation s are not valid for patients with acute kidney injury and for patients on dialysis. Creatinine- based estimates of kidney function may also be inaccurate in patients with reduced creatinine generation due to decreased muscle mass (e.g., malnutritio n, severe hypoalbumin emia, sarcopenia, chronic neuromuscul ar disease, amputations , severe heart failure or liver disease) and in patients with increased creatinine generation due to increased muscle mass (e.g., muscle builders, anabolic steroids) or increased dietary intake. As drug clearance is proportiona l to total GFR and not GFR indexed to body surface area (BSA), in individuals with a BSA substantial ly different than 1.73 m2, drug dosing should be based on the reported eGFR value de-indexed from BSA by multiplying by the individual' s BSA and dividing by 1.73. CKD is diagnosed based on abnormaliti es of kidney structure or function, present for >3 months, with implication s for health and disease. CKD is classified and staged based on cause, eGFR and albuminuria (quantified as urine albumin to creatinine ratio). An eGFR >60 mL/min/1.73 m2 in the absence of increased urine albumin excretion or structural abnormaliti es does not represent CKD. eGFR CKD Interpretat ion (mL/min/1.7 3 m2) stage >=90 G1 Normal 60-89 G2 Mild decrease 45-59 G3A Mild to moderate decrease 30-44 G3B Moderate to severe decrease 15-29 G4 Severe decrease <15 G5 Kidney failure Vitamin B12 test may not yield results when protein level of sample is too elevated. Ordering Provider: LOLA CHAPMAN Report Released Date/Time: Dec 31, 2022 08:56 AM Reporting Lab: [facility] [address] [address] Performing Lab: [facility] [address] [address] [facility] LIPID PROFILE TRIGLYCERI DE [MASS/VOLU ME] IN SERUM OR PLASMA 187 mg/dL 0 - 149 12/31 H Specimen Type: PLASMA Comment: Estimated Glomerular Filtration Rate (eGFR) calculated using the 2020 Chronic Kidney Disease-Epi demiology (CKD-EPI) Collaborati on creatinine equation; units of measure are mL/min/1.73 m2. Results are only valid for adults (>=18 years) whose serum creatinine is in a steady state. eGFR calculation s are not valid for patients with acute kidney injury and for patients on dialysis. Creatinine- based estimates of kidney function may also be inaccurate in patients with reduced creatinine generation due to decreased muscle mass (e.g., malnutritio n, severe hypoalbumin emia, sarcopenia, chronic neuromuscul ar disease, amputations , severe heart failure or liver disease) and in patients with increased creatinine generation due to increased muscle mass (e.g., muscle builders, anabolic steroids) or increased dietary intake. As drug clearance is proportiona l to total GFR and not GFR indexed to body surface area (BSA), in individuals with a BSA substantial ly different than 1.73 m2, drug dosing should be based on the reported eGFR value de-indexed from BSA by multiplying by the individual' s BSA and dividing by 1.73. CKD is diagnosed based on abnormaliti es of kidney structure or function, present for >3 months, with implication s for health and disease. CKD is classified and staged based on cause, eGFR and albuminuria (quantified as urine albumin to creatinine ratio). An eGFR >60 mL/min/1.73 m2 in the absence of increased urine albumin excretion or structural abnormaliti es does not represent CKD. eGFR CKD Interpretat ion (mL/min/1.7 3 m2) stage >=90 G1 Normal 60-89 G2 Mild decrease 45-59 G3A Mild to moderate decrease 30-44 G3B Moderate to severe decrease 15-29 G4 Severe decrease <15 G5 Kidney failure Vitamin B12 test may not yield results when protein level of sample is too elevated. Ordering Provider: LOLA CHAPMAN Report Released Date/Time: Dec 31, 2022 08:56 AM Reporting Lab: [facility] [address] [address] Performing Lab: [facility] [address] [address] [facility] LIPID PROFILE CHOLESTERO L IN HDL [MASS/VOLU ME] IN SERUM OR PLASMA 48 mg/dL 40 - 69 12/31 Specimen Type: PLASMA Comment: Estimated Glomerular Filtration Rate (eGFR) calculated using the 2020 Chronic Kidney Disease-Epi demiology (CKD-EPI) Collaborati on creatinine equation; units of measure are mL/min/1.73 m2. Results are only valid for adults (>=18 years) whose serum creatinine is in a steady state. eGFR calculation s are not valid for patients with acute kidney injury and for patients on dialysis. Creatinine- based estimates of kidney function may also be inaccurate in patients with reduced creatinine generation due to decreased muscle mass (e.g., malnutritio n, severe hypoalbumin emia, sarcopenia, chronic neuromuscul ar disease, amputations , severe heart failure or liver disease) and in patients with increased creatinine generation due to increased muscle mass (e.g., muscle builders, anabolic steroids) or increased dietary intake. As drug clearance is proportiona l to total GFR and not GFR indexed to body surface area (BSA), in individuals with a BSA substantial ly different than 1.73 m2, drug dosing should be based on the reported eGFR value de-indexed from BSA by multiplying by the individual' s BSA and dividing by 1.73. CKD is diagnosed based on abnormaliti es of kidney structure or function, present for >3 months, with implication s for health and disease. CKD is classified and staged based on cause, eGFR and albuminuria (quantified as urine albumin to creatinine ratio). An eGFR >60 mL/min/1.73 m2 in the absence of increased urine albumin excretion or structural abnormaliti es does not represent CKD. eGFR CKD Interpretat ion (mL/min/1.7 3 m2) stage >=90 G1 Normal 60-89 G2 Mild decrease 45-59 G3A Mild to moderate decrease 30-44 G3B Moderate to severe decrease 15-29 G4 Severe decrease <15 G5 Kidney failure Vitamin B12 test may not yield results when protein level of sample is too elevated. Ordering Provider: LOLA CHAPMAN Report Released Date/Time: Dec 31, 2022 08:56 AM Reporting Lab: [facility] [address] [address] Performing Lab: [facility] [address] [address] [facility] LIPID PROFILE CHOLESTERO L IN LDL [MASS/VOLU ME] IN SERUM OR PLASMA BY DIRECT ASSAY 106 mg/dL 0 - 100 12/31 H Specimen Type: PLASMA Comment: Estimated Glomerular Filtration Rate (eGFR) calculated using the 2020 Chronic Kidney Disease-Epi demiology (CKD-EPI) Collaborati on creatinine equation; units of measure are mL/min/1.73 m2. Results are only valid for adults (>=18 years) whose serum creatinine is in a steady state. eGFR calculation s are not valid for patients with acute kidney injury and for patients on dialysis. Creatinine- based estimates of kidney function may also be inaccurate in patients with reduced creatinine generation due to decreased muscle mass (e.g., malnutritio n, severe hypoalbumin emia, sarcopenia, chronic neuromuscul ar disease, amputations , severe heart failure or liver disease) and in patients with increased creatinine generation due to increased muscle mass (e.g., muscle builders, anabolic steroids) or increased dietary intake. As drug clearance is proportiona l to total GFR and not GFR indexed to body surface area (BSA), in individuals with a BSA substantial ly different than 1.73 m2, drug dosing should be based on the reported eGFR value de-indexed from BSA by multiplying by the individual' s BSA and dividing by 1.73. CKD is diagnosed based on abnormaliti es of kidney structure or function, present for >3 months, with implication s for health and disease. CKD is classified and staged based on cause, eGFR and albuminuria (quantified as urine albumin to creatinine ratio). An eGFR >60 mL/min/1.73 m2 in the absence of increased urine albumin excretion or structural abnormaliti es does not represent CKD. eGFR CKD Interpretat ion (mL/min/1.7 3 m2) stage >=90 G1 Normal 60-89 G2 Mild decrease 45-59 G3A Mild to moderate decrease 30-44 G3B Moderate to severe decrease 15-29 G4 Severe decrease <15 G5 Kidney failure Vitamin B12 test may not yield results when protein level of sample is too elevated. Ordering Provider: LOLA CHAPMAN Report Released Date/Time: Dec 31, 2022 08:56 AM Reporting Lab: [facility] [address] [address] Performing Lab: [facility] [address] [address] [facility] PANEL 1 CREATININE [MASS/VOLU ME] IN SERUM OR PLASMA 1.03 mg/dL 0.72 - 1.25 12/31 Specimen Type: PLASMA Comment: Estimated Glomerular Filtration Rate (eGFR) calculated using the 2020 Chronic Kidney Disease-Epi demiology (CKD-EPI) Collaborati on creatinine equation; units of measure are mL/min/1.73 m2. Results are only valid for adults (>=18 years) whose serum creatinine is in a steady state. eGFR calculation s are not valid for patients with acute kidney injury and for patients on dialysis. Creatinine- based estimates of kidney function may also be inaccurate in patients with reduced creatinine generation due to decreased muscle mass (e.g., malnutritio n, severe hypoalbumin emia, sarcopenia, chronic neuromuscul ar disease, amputations , severe heart failure or liver disease) and in patients with increased creatinine generation due to increased muscle mass (e.g., muscle builders, anabolic steroids) or increased dietary intake. As drug clearance is proportiona l to total GFR and not GFR indexed to body surface area (BSA), in individuals with a BSA substantial ly different than 1.73 m2, drug dosing should be based on the reported eGFR value de-indexed from BSA by multiplying by the individual' s BSA and dividing by 1.73. CKD is diagnosed based on abnormaliti es of kidney structure or function, present for >3 months, with implication s for health and disease. CKD is classified and staged based on cause, eGFR and albuminuria (quantified as urine albumin to creatinine ratio). An eGFR >60 mL/min/1.73 m2 in the absence of increased urine albumin excretion or structural abnormaliti es does not represent CKD. eGFR CKD Interpretat ion (mL/min/1.7 3 m2) stage >=90 G1 Normal 60-89 G2 Mild decrease 45-59 G3A Mild to moderate decrease 30-44 G3B Moderate to severe decrease 15-29 G4 Severe decrease <15 G5 Kidney failure Vitamin B12 test may not yield results when protein level of sample is too elevated. Ordering Provider: LOLA CHAPMAN Report Released Date/Time: Dec 31, 2022 08:56 AM Reporting Lab: [facility] [address] [facility] [address] Performing Lab: [facility] [address] [facility] [address] [facility] PANEL 1 UREA NITROGEN [MASS/VOLU ME] IN SERUM OR PLASMA 13 mg/dL 9 - 12/31 Specimen Type: PLASMA Comment: Estimated Glomerular Filtration Rate (eGFR) calculated using the 2020 Chronic Kidney Disease-Epi demiology (CKD-EPI) Collaborati on creatinine equation; units of measure are mL/min/1.73 m2. Results are only valid for adults (>=18 years) whose serum creatinine is in a steady state. eGFR calculation s are not valid for patients with acute kidney injury and for patients on dialysis. Creatinine- based estimates of kidney function may also be inaccurate in patients with reduced creatinine generation due to decreased muscle mass (e.g., malnutritio n, severe hypoalbumin emia, sarcopenia, chronic neuromuscul ar disease, amputations , severe heart failure or liver disease) and in patients with increased creatinine generation due to increased muscle mass (e.g., muscle builders, anabolic steroids) or increased dietary intake. As drug clearance is proportiona l to total GFR and not GFR indexed to body surface area (BSA), in individuals with a BSA substantial ly different than 1.73 m2, drug dosing should be based on the reported eGFR value de-indexed from BSA by multiplying by the individual' s BSA and dividing by 1.73. CKD is diagnosed based on abnormaliti es of kidney structure or function, present for >3 months, with implication s for health and disease. CKD is classified and staged based on cause, eGFR and albuminuria (quantified as urine albumin to creatinine ratio). An eGFR >60 mL/min/1.73 m2 in the absence of increased urine albumin excretion or structural abnormaliti es does not represent CKD. eGFR CKD Interpretat ion (mL/min/1.7 3 m2) stage >=90 G1 Normal 60-89 G2 Mild decrease 45-59 G3A Mild to moderate decrease 30-44 G3B Moderate to severe decrease 15-29 G4 Severe decrease <15 G5 Kidney failure Vitamin B12 test may not yield results when protein level of sample is too elevated. Ordering Provider: LOLA CHAPMAN Report Released Date/Time: Dec 31, 2022 08:56 AM Reporting Lab: [address] [address] Performing Lab: [address] [address] [facility] PANEL 1 GLUCOSE [MASS/VOLU ME] IN SERUM OR PLASMA 118 mg/dL 74 - 100 12/31 H Specimen Type: PLASMA Comment: Estimated Glomerular Filtration Rate (eGFR) calculated using the 2020 Chronic Kidney Disease-Epi demiology (CKD-EPI) Collaborati on creatinine equation; units of measure are mL/min/1.73 m2. Results are only valid for adults (>=18 years) whose serum creatinine is in a steady state. eGFR calculation s are not valid for patients with acute kidney injury and for patients on dialysis. Creatinine- based estimates of kidney function may also be inaccurate in patients with reduced creatinine generation due to decreased muscle mass (e.g., malnutritio n, severe hypoalbumin emia, sarcopenia, chronic neuromuscul ar disease, amputations , severe heart failure or liver disease) and in patients with increased creatinine generation due to increased muscle mass (e.g., muscle builders, anabolic steroids) or increased dietary intake. As drug clearance is proportiona l to total GFR and not GFR indexed to body surface area (BSA), in individuals with a BSA substantial ly different than 1.73 m2, drug dosing should be based on the reported eGFR value de-indexed from BSA by multiplying by the individual' s BSA and dividing by 1.73. CKD is diagnosed based on abnormaliti es of kidney structure or function, present for >3 months, with implication s for health and disease. CKD is classified and staged based on cause, eGFR and albuminuria (quantified as urine albumin to creatinine ratio). An eGFR >60 mL/min/1.73 m2 in the absence of increased urine albumin excretion or structural abnormaliti es does not represent CKD. eGFR CKD Interpretat ion (mL/min/1.7 3 m2) stage >=90 G1 Normal 60-89 G2 Mild decrease 45-59 G3A Mild to moderate decrease 30-44 G3B Moderate to severe decrease 15-29 G4 Severe decrease <15 G5 Kidney failure Vitamin B12 test may not yield results when protein level of sample is too elevated. Ordering Provider: LOLA CHAPMAN Report Released Date/Time: Dec 31, 2022 08:56 AM Reporting Lab: [place] [address] [address] Performing Lab: [place] [address] [facility] PANEL 1 SODIUM [MOLES/VOL UME] IN SERUM OR PLASMA 137 mmol/L 136 - 145 12/31 Specimen Type: PLASMA Comment: Estimated Glomerular Filtration Rate (eGFR) calculated using the 2020 Chronic Kidney Disease-Epi demiology (CKD-EPI) Collaborati on creatinine equation; units of measure are mL/min/1.73 m2. Results are only valid for adults (>=18 years) whose serum creatinine is in a steady state. eGFR calculation s are not valid for patients with acute kidney injury and for patients on dialysis. Creatinine- based estimates of kidney function may also be inaccurate in patients with reduced creatinine generation due to decreased muscle mass (e.g., malnutritio n, severe hypoalbumin emia, sarcopenia, chronic neuromuscul ar disease, amputations , severe heart failure or liver disease) and in patients with increased creatinine generation due to increased muscle mass (e.g., muscle builders, anabolic steroids) or increased dietary intake. As drug clearance is proportiona l to total GFR and not GFR indexed to body surface area (BSA), in individuals with a BSA substantial ly different than 1.73 m2, drug dosing should be based on the reported eGFR value de-indexed from BSA by multiplying by the individual' s BSA and dividing by 1.73. CKD is diagnosed based on abnormaliti es of kidney structure or function, present for >3 months, with implication s for health and disease. CKD is classified and staged based on cause, eGFR and albuminuria (quantified as urine albumin to creatinine ratio). An eGFR >60 mL/min/1.73 m2 in the absence of increased urine albumin excretion or structural abnormaliti es does not represent CKD. eGFR CKD Interpretat ion (mL/min/1.7 3 m2) stage >=90 G1 Normal 60-89 G2 Mild decrease 45-59 G3A Mild to moderate decrease 30-44 G3B Moderate to severe decrease 15-29 G4 Severe decrease <15 G5 Kidney failure Vitamin B12 test may not yield results when protein level of sample is too elevated. Ordering Provider: LOLA CHAPMAN Report Released Date/Time: Dec 31, 2022 08:56 AM Reporting Lab: [facility] [address] [address] Performing Lab: [facility] [address] [address] [facility] PANEL 1 POTASSIUM [MOLES/VOL UME] IN SERUM OR PLASMA 4.6 mmol/L 3.5 - 5.1 12/31 Specimen Type: PLASMA Comment: Estimated Glomerular Filtration Rate (eGFR) calculated using the 2020 Chronic Kidney Disease-Epi demiology (CKD-EPI) Collaborati on creatinine equation; units of measure are mL/min/1.73 m2. Results are only valid for adults (>=18 years) whose serum creatinine is in a steady state. eGFR calculation s are not valid for patients with acute kidney injury and for patients on dialysis. Creatinine- based estimates of kidney function may also be inaccurate in patients with reduced creatinine generation due to decreased muscle mass (e.g., malnutritio n, severe hypoalbumin emia, sarcopenia, chronic neuromuscul ar disease, amputations , severe heart failure or liver disease) and in patients with increased creatinine generation due to increased muscle mass (e.g., muscle builders, anabolic steroids) or increased dietary intake. As drug clearance is proportiona l to total GFR and not GFR indexed to body surface area (BSA), in individuals with a BSA substantial ly different than 1.73 m2, drug dosing should be based on the reported eGFR value de-indexed from BSA by multiplying by the individual' s BSA and dividing by 1.73. CKD is diagnosed based on abnormaliti es of kidney structure or function, present for >3 months, with implication s for health and disease. CKD is classified and staged based on cause, eGFR and albuminuria (quantified as urine albumin to creatinine ratio). An eGFR >60 mL/min/1.73 m2 in the absence of increased urine albumin excretion or structural abnormaliti es does not represent CKD. eGFR CKD Interpretat ion (mL/min/1.7 3 m2) stage >=90 G1 Normal 60-89 G2 Mild decrease 45-59 G3A Mild to moderate decrease 30-44 G3B Moderate to severe decrease 15-29 G4 Severe decrease <15 G5 Kidney failure Vitamin B12 test may not yield results when protein level of sample is too elevated. Ordering Provider: LOLA CHAPMAN Report Released Date/Time: Dec 31, 2022 08:56 AM Reporting Lab: [facility] [address] [address] Performing Lab: [facility] [address] [address] [facility] PANEL 1 CHLORIDE [MOLES/VOL UME] IN SERUM OR PLASMA 104 mmol/L 98 - 107 12/31 Specimen Type: PLASMA Comment: Estimated Glomerular Filtration Rate (eGFR) calculated using the 2020 Chronic Kidney Disease-Epi demiology (CKD-EPI) Collaborati on creatinine equation; units of measure are mL/min/1.73 m2. Results are only valid for adults (>=18 years) whose serum creatinine is in a steady state. eGFR calculation s are not valid for patients with acute kidney injury and for patients on dialysis. Creatinine- based estimates of kidney function may also be inaccurate in patients with reduced creatinine generation due to decreased muscle mass (e.g., malnutritio n, severe hypoalbumin emia, sarcopenia, chronic neuromuscul ar disease, amputations , severe heart failure or liver disease) and in patients with increased creatinine generation due to increased muscle mass (e.g., muscle builders, anabolic steroids) or increased dietary intake. As drug clearance is proportiona l to total GFR and not GFR indexed to body surface area (BSA), in individuals with a BSA substantial ly different than 1.73 m2, drug dosing should be based on the reported eGFR value de-indexed from BSA by multiplying by the individual' s BSA and dividing by 1.73. CKD is diagnosed based on abnormaliti es of kidney structure or function, present for >3 months, with implication s for health and disease. CKD is classified and staged based on cause, eGFR and albuminuria (quantified as urine albumin to creatinine ratio). An eGFR >60 mL/min/1.73 m2 in the absence of increased urine albumin excretion or structural abnormaliti es does not represent CKD. eGFR CKD Interpretat ion (mL/min/1.7 3 m2) stage >=90 G1 Normal 60-89 G2 Mild decrease 45-59 G3A Mild to moderate decrease 30-44 G3B Moderate to severe decrease 15-29 G4 Severe decrease <15 G5 Kidney failure Vitamin B12 test may not yield results when protein level of sample is too elevated. Ordering Provider: LOLA CHAPMAN Report Released Date/Time: Dec 31, 2022 08:56 AM Reporting Lab: [facility] [address] [address] Performing Lab: [facility] [address] [address] [facility] PANEL 1 CARBON DIOXIDE, TOTAL [MOLES/VOL UME] IN SERUM OR PLASMA 25 mmol/L - 12/31 Specimen Type: PLASMA Comment: Estimated Glomerular Filtration Rate (eGFR) calculated using the 2020 Chronic Kidney Disease-Epi demiology (CKD-EPI) Collaborati on creatinine equation; units of measure are mL/min/1.73 m2. Results are only valid for adults (>=18 years) whose serum creatinine is in a steady state. eGFR calculation s are not valid for patients with acute kidney injury and for patients on dialysis. Creatinine- based estimates of kidney function may also be inaccurate in patients with reduced creatinine generation due to decreased muscle mass (e.g., malnutritio n, severe hypoalbumin emia, sarcopenia, chronic neuromuscul ar disease, amputations , severe heart failure or liver disease) and in patients with increased creatinine generation due to increased muscle mass (e.g., muscle builders, anabolic steroids) or increased dietary intake. As drug clearance is proportiona l to total GFR and not GFR indexed to body surface area (BSA), in individuals with a BSA substantial ly different than 1.73 m2, drug dosing should be based on the reported eGFR value de-indexed from BSA by multiplying by the individual' s BSA and dividing by 1.73. CKD is diagnosed based on abnormaliti es of kidney structure or function, present for >3 months, with implication s for health and disease. CKD is classified and staged based on cause, eGFR and albuminuria (quantified as urine albumin to creatinine ratio). An eGFR >60 mL/min/1.73 m2 in the absence of increased urine albumin excretion or structural abnormaliti es does not represent CKD. eGFR CKD Interpretat ion (mL/min/1.7 3 m2) stage >=90 G1 Normal 60-89 G2 Mild decrease 45-59 G3A Mild to moderate decrease 30-44 G3B Moderate to severe decrease 15-29 G4 Severe decrease <15 G5 Kidney failure Vitamin B12 test may not yield results when protein level of sample is too elevated. Ordering Provider: LOLA CHAPMAN Report Released Date/Time: Dec 31, 2022 08:56 AM Reporting Lab: [facility] [address] [address] Performing Lab: [facility] [address] [address] [facility] PANEL 1 CALCIUM [MASS/VOLU ME] IN SERUM OR PLASMA 9.7 mg/dL 8.4 - 10.2 12/31 Specimen Type: PLASMA Comment: Estimated Glomerular Filtration Rate (eGFR) calculated using the 2020 Chronic Kidney Disease-Epi demiology (CKD-EPI) Collaborati on creatinine equation; units of measure are mL/min/1.73 m2. Results are only valid for adults (>=18 years) whose serum creatinine is in a steady state. eGFR calculation s are not valid for patients with acute kidney injury and for patients on dialysis. Creatinine- based estimates of kidney function may also be inaccurate in patients with reduced creatinine generation due to decreased muscle mass (e.g., malnutritio n, severe hypoalbumin emia, sarcopenia, chronic neuromuscul ar disease, amputations , severe heart failure or liver disease) and in patients with increased creatinine generation due to increased muscle mass (e.g., muscle builders, anabolic steroids) or increased dietary intake. As drug clearance is proportiona l to total GFR and not GFR indexed to body surface area (BSA), in individuals with a BSA substantial ly different than 1.73 m2, drug dosing should be based on the reported eGFR value de-indexed from BSA by multiplying by the individual' s BSA and dividing by 1.73. CKD is diagnosed based on abnormaliti es of kidney structure or function, present for >3 months, with implication s for health and disease. CKD is classified and staged based on cause, eGFR and albuminuria (quantified as urine albumin to creatinine ratio). An eGFR >60 mL/min/1.73 m2 in the absence of increased urine albumin excretion or structural abnormaliti es does not represent CKD. eGFR CKD Interpretat ion (mL/min/1.7 3 m2) stage >=90 G1 Normal 60-89 G2 Mild decrease 45-59 G3A Mild to moderate decrease 30-44 G3B Moderate to severe decrease 15-29 G4 Severe decrease <15 G5 Kidney failure Vitamin B12 test may not yield results when protein level of sample is too elevated. Ordering Provider: LOLA CHAPMAN Report Released Date/Time: Dec 31, 2022 08:56 AM Reporting Lab: [facility] [address] [address] Performing Lab: [facility] [address] [address] [facility] PANEL 1 ANION GAP 3 IN SERUM OR PLASMA 8 meq/L 3 - 19 12/31 Specimen Type: PLASMA Comment: Estimated Glomerular Filtration Rate (eGFR) calculated using the 2020 Chronic Kidney Disease-Epi demiology (CKD-EPI) Collaborati on creatinine equation; units of measure are mL/min/1.73 m2. Results are only valid for adults (>=18 years) whose serum creatinine is in a steady state. eGFR calculation s are not valid for patients with acute kidney injury and for patients on dialysis. Creatinine- based estimates of kidney function may also be inaccurate in patients with reduced creatinine generation due to decreased muscle mass (e.g., malnutritio n, severe hypoalbumin emia, sarcopenia, chronic neuromuscul ar disease, amputations , severe heart failure or liver disease) and in patients with increased creatinine generation due to increased muscle mass (e.g., muscle builders, anabolic steroids) or increased dietary intake. As drug clearance is proportiona l to total GFR and not GFR indexed to body surface area (BSA), in individuals with a BSA substantial ly different than 1.73 m2, drug dosing should be based on the reported eGFR value de-indexed from BSA by multiplying by the individual' s BSA and dividing by 1.73. CKD is diagnosed based on abnormaliti es of kidney structure or function, present for >3 months, with implication s for health and disease. CKD is classified and staged based on cause, eGFR and albuminuria (quantified as urine albumin to creatinine ratio). An eGFR >60 mL/min/1.73 m2 in the absence of increased urine albumin excretion or structural abnormaliti es does not represent CKD. eGFR CKD Interpretat ion (mL/min/1.7 3 m2) stage >=90 G1 Normal 60-89 G2 Mild decrease 45-59 G3A Mild to moderate decrease 30-44 G3B Moderate to severe decrease 15-29 G4 Severe decrease <15 G5 Kidney failure Vitamin B12 test may not yield results when protein level of sample is too elevated. Ordering Provider: LOLA CHAPMAN Report Released Date/Time: Dec 31, 2022 08:56 AM Reporting Lab: [facility] [address] [address] Performing Lab: [facility] [address] [address] [facility] PANEL 1 GLOMERULAR FILTRATION RATE/1.73 SQ M.PREDICTE D [VOLUME RATE/AREA] IN SERUM, PLASMA OR BLOOD BY CREATININE -BASED FORMULA (CKD-EPI 2020) 76 12/31 Specimen Type: PLASMA Comment: Estimated Glomerular Filtration Rate (eGFR) calculated using the 2020 Chronic Kidney Disease-Epi demiology (CKD-EPI) Collaborati on creatinine equation; units of measure are mL/min/1.73 m2. Results are only valid for adults (>=18 years) whose serum creatinine is in a steady state. eGFR calculation s are not valid for patients with acute kidney injury and for patients on dialysis. Creatinine- based estimates of kidney function may also be inaccurate in patients with reduced creatinine generation due to decreased muscle mass (e.g., malnutritio n, severe hypoalbumin emia, sarcopenia, chronic neuromuscul ar disease, amputations , severe heart failure or liver disease) and in patients with increased creatinine generation due to increased muscle mass (e.g., muscle builders, anabolic steroids) or increased dietary intake. As drug clearance is proportiona l to total GFR and not GFR indexed to body surface area (BSA), in individuals with a BSA substantial ly different than 1.73 m2, drug dosing should be based on the reported eGFR value de-indexed from BSA by multiplying by the individual' s BSA and dividing by 1.73. CKD is diagnosed based on abnormaliti es of kidney structure or function, present for >3 months, with implication s for health and disease. CKD is classified and staged based on cause, eGFR and albuminuria (quantified as urine albumin to creatinine ratio). An eGFR >60 mL/min/1.73 m2 in the absence of increased urine albumin excretion or structural abnormaliti es does not represent CKD. eGFR CKD Interpretat ion (mL/min/1.7 3 m2) stage >=90 G1 Normal 60-89 G2 Mild decrease 45-59 G3A Mild to moderate decrease 30-44 G3B Moderate to severe decrease 15-29 G4 Severe decrease <15 G5 Kidney failure Vitamin B12 test may not yield results when protein level of sample is too elevated. Ordering Provider: KOUSA,KITTA Report Released Date/Time: Dec 31, 2022 08:56 AM Reporting Lab: [facility] [address] [facility] [address] Performing Lab: [facility] [place] [id number] [facility] [address] [facility] PANEL 2 PROTEIN [MASS/VOLU ME] IN SERUM OR PLASMA 6.9 g/dL 6.4 - 8.3 12/31 Specimen Type: PLASMA Comment: Estimated Glomerular Filtration Rate (eGFR) calculated using the 2020 Chronic Kidney Disease-Epi demiology (CKD-EPI) Collaborati on creatinine equation; units of measure are mL/min/1.73 m2. Results are only valid for adults (>=18 years) whose serum creatinine is in a steady state. eGFR calculation s are not valid for patients with acute kidney injury and for patients on dialysis. Creatinine- based estimates of kidney function may also be inaccurate in patients with reduced creatinine generation due to decreased muscle mass (e.g., malnutritio n, severe hypoalbumin emia, sarcopenia, chronic neuromuscul ar disease, amputations , severe heart failure or liver disease) and in patients with increased creatinine generation due to increased muscle mass (e.g., muscle builders, anabolic steroids) or increased dietary intake. As drug clearance is proportiona l to total GFR and not GFR indexed to body surface area (BSA), in individuals with a BSA substantial ly different than 1.73 m2, drug dosing should be based on the reported eGFR value de-indexed from BSA by multiplying by the individual' s BSA and dividing by 1.73. CKD is diagnosed based on abnormaliti es of kidney structure or function, present for >3 months, with implication s for health and disease. CKD is classified and staged based on cause, eGFR and albuminuria (quantified as urine albumin to creatinine ratio). An eGFR >60 mL/min/1.73 m2 in the absence of increased urine albumin excretion or structural abnormaliti es does not represent CKD. eGFR CKD Interpretat ion (mL/min/1.7 3 m2) stage >=90 G1 Normal 60-89 G2 Mild decrease 45-59 G3A Mild to moderate decrease 30-44 G3B Moderate to severe decrease 15-29 G4 Severe decrease <15 G5 Kidney failure Vitamin B12 test may not yield results when protein level of sample is too elevated. Ordering Provider: LOLA CHAPMAN Report Released Date/Time: Dec 31, 2022 08:56 AM Reporting Lab: [facility] [address] [facility] [address] Performing Lab: [facility] [address] [address] [facility] PANEL 2 ALBUMIN [MASS/VOLU ME] IN SERUM OR PLASMA 4.5 g/dL 3.5 - 5.2 12/31 Specimen Type: PLASMA Comment: Estimated Glomerular Filtration Rate (eGFR) calculated using the 2020 Chronic Kidney Disease-Epi demiology (CKD-EPI) Collaborati on creatinine equation; units of measure are mL/min/1.73 m2. Results are only valid for adults (>=18 years) whose serum creatinine is in a steady state. eGFR calculation s are not valid for patients with acute kidney injury and for patients on dialysis. Creatinine- based estimates of kidney function may also be inaccurate in patients with reduced creatinine generation due to decreased muscle mass (e.g., malnutritio n, severe hypoalbumin emia, sarcopenia, chronic neuromuscul ar disease, amputations , severe heart failure or liver disease) and in patients with increased creatinine generation due to increased muscle mass (e.g., muscle builders, anabolic steroids) or increased dietary intake. As drug clearance is proportiona l to total GFR and not GFR indexed to body surface area (BSA), in individuals with a BSA substantial ly different than 1.73 m2, drug dosing should be based on the reported eGFR value de-indexed from BSA by multiplying by the individual' s BSA and dividing by 1.73. CKD is diagnosed based on abnormaliti es of kidney structure or function, present for >3 months, with implication s for health and disease. CKD is classified and staged based on cause, eGFR and albuminuria (quantified as urine albumin to creatinine ratio). An eGFR >60 mL/min/1.73 m2 in the absence of increased urine albumin excretion or structural abnormaliti es does not represent CKD. eGFR CKD Interpretat ion (mL/min/1.7 3 m2) stage >=90 G1 Normal 60-89 G2 Mild decrease 45-59 G3A Mild to moderate decrease 30-44 G3B Moderate to severe decrease 15-29 G4 Severe decrease <15 G5 Kidney failure Vitamin B12 test may not yield results when protein level of sample is too elevated. Ordering Provider: LOLA CHAPMAN Report Released Date/Time: Dec 31, 2022 08:56 AM Reporting Lab: [facility] [address] [place] [phone] Performing Lab: [address] [address] [facility] PANEL 2 BILIRUBIN. TOTAL [MASS/VOLU ME] IN SERUM OR PLASMA 1.6 mg/dL 0.2 - 1.2 12/31 H Specimen Type: PLASMA Comment: Estimated Glomerular Filtration Rate (eGFR) calculated using the 2020 Chronic Kidney Disease-Epi demiology (CKD-EPI) Collaborati on creatinine equation; units of measure are mL/min/1.73 m2. Results are only valid for adults (>=18 years) whose serum creatinine is in a steady state. eGFR calculation s are not valid for patients with acute kidney injury and for patients on dialysis. Creatinine- based estimates of kidney function may also be inaccurate in patients with reduced creatinine generation due to decreased muscle mass (e.g., malnutritio n, severe hypoalbumin emia, sarcopenia, chronic neuromuscul ar disease, amputations , severe heart failure or liver disease) and in patients with increased creatinine generation due to increased muscle mass (e.g., muscle builders, anabolic steroids) or increased dietary intake. As drug clearance is proportiona l to total GFR and not GFR indexed to body surface area (BSA), in individuals with a BSA substantial ly different than 1.73 m2, drug dosing should be based on the reported eGFR value de-indexed from BSA by multiplying by the individual' s BSA and dividing by 1.73. CKD is diagnosed based on abnormaliti es of kidney structure or function, present for >3 months, with implication s for health and disease. CKD is classified and staged based on cause, eGFR and albuminuria (quantified as urine albumin to creatinine ratio). An eGFR >60 mL/min/1.73 m2 in the absence of increased urine albumin excretion or structural abnormaliti es does not represent CKD. eGFR CKD Interpretat ion (mL/min/1.7 3 m2) stage >=90 G1 Normal 60-89 G2 Mild decrease 45-59 G3A Mild to moderate decrease 30-44 G3B Moderate to severe decrease 15-29 G4 Severe decrease <15 G5 Kidney failure Vitamin B12 test may not yield results when protein level of sample is too elevated. Ordering Provider: LOLA CHAPMAN Report Released Date/Time: Dec 31, 2022 08:56 AM Reporting Lab: [facility] [address] [address] Performing Lab: [facility] [address] [address] [facility] PANEL 2 ASPARTATE AMINOTRANS FERASE [ENZYMATIC ACTIVITY/V OLUME] IN SERUM OR PLASMA 23 U/L 5 - 34 12/31 Specimen Type: PLASMA Comment: Estimated Glomerular Filtration Rate (eGFR) calculated using the 2020 Chronic Kidney Disease-Epi demiology (CKD-EPI) Collaborati on creatinine equation; units of measure are mL/min/1.73 m2. Results are only valid for adults (>=18 years) whose serum creatinine is in a steady state. eGFR calculation s are not valid for patients with acute kidney injury and for patients on dialysis. Creatinine- based estimates of kidney function may also be inaccurate in patients with reduced creatinine generation due to decreased muscle mass (e.g., malnutritio n, severe hypoalbumin emia, sarcopenia, chronic neuromuscul ar disease, amputations , severe heart failure or liver disease) and in patients with increased creatinine generation due to increased muscle mass (e.g., muscle builders, anabolic steroids) or increased dietary intake. As drug clearance is proportiona l to total GFR and not GFR indexed to body surface area (BSA), in individuals with a BSA substantial ly different than 1.73 m2, drug dosing should be based on the reported eGFR value de-indexed from BSA by multiplying by the individual' s BSA and dividing by 1.73. CKD is diagnosed based on abnormaliti es of kidney structure or function, present for >3 months, with implication s for health and disease. CKD is classified and staged based on cause, eGFR and albuminuria (quantified as urine albumin to creatinine ratio). An eGFR >60 mL/min/1.73 m2 in the absence of increased urine albumin excretion or structural abnormaliti es does not represent CKD. eGFR CKD Interpretat ion (mL/min/1.7 3 m2) stage >=90 G1 Normal 60-89 G2 Mild decrease 45-59 G3A Mild to moderate decrease 30-44 G3B Moderate to severe decrease 15-29 G4 Severe decrease <15 G5 Kidney failure Vitamin B12 test may not yield results when protein level of sample is too elevated. Ordering Provider: LOLA CHAPMAN Report Released Date/Time: Dec 31, 2022 08:56 AM Reporting Lab: [facility] [address] [address] Performing Lab: [address] [address] [facility] PANEL 2 ALANINE AMINOTRANS FERASE [ENZYMATIC ACTIVITY/V OLUME] IN SERUM OR PLASMA 28 U/L 0 - 55 12/31 Specimen Type: PLASMA Comment: Estimated Glomerular Filtration Rate (eGFR) calculated using the 2020 Chronic Kidney Disease-Epi demiology (CKD-EPI) Collaborati on creatinine equation; units of measure are mL/min/1.73 m2. Results are only valid for adults (>=18 years) whose serum creatinine is in a steady state. eGFR calculation s are not valid for patients with acute kidney injury and for patients on dialysis. Creatinine- based estimates of kidney function may also be inaccurate in patients with reduced creatinine generation due to decreased muscle mass (e.g., malnutritio n, severe hypoalbumin emia, sarcopenia, chronic neuromuscul ar disease, amputations , severe heart failure or liver disease) and in patients with increased creatinine generation due to increased muscle mass (e.g., muscle builders, anabolic steroids) or increased dietary intake. As drug clearance is proportiona l to total GFR and not GFR indexed to body surface area (BSA), in individuals with a BSA substantial ly different than 1.73 m2, drug dosing should be based on the reported eGFR value de-indexed from BSA by multiplying by the individual' s BSA and dividing by 1.73. CKD is diagnosed based on abnormaliti es of kidney structure or function, present for >3 months, with implication s for health and disease. CKD is classified and staged based on cause, eGFR and albuminuria (quantified as urine albumin to creatinine ratio). An eGFR >60 mL/min/1.73 m2 in the absence of increased urine albumin excretion or structural abnormaliti es does not represent CKD. eGFR CKD Interpretat ion (mL/min/1.7 3 m2) stage >=90 G1 Normal 60-89 G2 Mild decrease 45-59 G3A Mild to moderate decrease 30-44 G3B Moderate to severe decrease 15-29 G4 Severe decrease <15 G5 Kidney failure Vitamin B12 test may not yield results when protein level of sample is too elevated. Ordering Provider: LOLA CHAPMAN Report Released Date/Time: Dec 31, 2022 08:56 AM Reporting Lab: [facility] [address] [address] Performing Lab: [address] [address] [facility] PANEL 2 ALKALINE PHOSPHATAS E [ENZYMATIC ACTIVITY/V OLUME] IN SERUM OR PLASMA 56 U/L 40 - 150 12/31 Specimen Type: PLASMA Comment: Estimated Glomerular Filtration Rate (eGFR) calculated using the 2020 Chronic Kidney Disease-Epi demiology (CKD-EPI) Collaborati on creatinine equation; units of measure are mL/min/1.73 m2. Results are only valid for adults (>=18 years) whose serum creatinine is in a steady state. eGFR calculation s are not valid for patients with acute kidney injury and for patients on dialysis. Creatinine- based estimates of kidney function may also be inaccurate in patients with reduced creatinine generation due to decreased muscle mass (e.g., malnutritio n, severe hypoalbumin emia, sarcopenia, chronic neuromuscul ar disease, amputations , severe heart failure or liver disease) and in patients with increased creatinine generation due to increased muscle mass (e.g., muscle builders, anabolic steroids) or increased dietary intake. As drug clearance is proportiona l to total GFR and not GFR indexed to body surface area (BSA), in individuals with a BSA substantial ly different than 1.73 m2, drug dosing should be based on the reported eGFR value de-indexed from BSA by multiplying by the individual' s BSA and dividing by 1.73. CKD is diagnosed based on abnormaliti es of kidney structure or function, present for >3 months, with implication s for health and disease. CKD is classified and staged based on cause, eGFR and albuminuria (quantified as urine albumin to creatinine ratio). An eGFR >60 mL/min/1.73 m2 in the absence of increased urine albumin excretion or structural abnormaliti es does not represent CKD. eGFR CKD Interpretat ion (mL/min/1.7 3 m2) stage >=90 G1 Normal 60-89 G2 Mild decrease 45-59 G3A Mild to moderate decrease 30-44 G3B Moderate to severe decrease 15-29 G4 Severe decrease <15 G5 Kidney failure Vitamin B12 test may not yield results when protein level of sample is too elevated. Ordering Provider: LOLA CHAPMAN Report Released Date/Time: Dec 31, 2022 08:56 AM Reporting Lab: [facility] [address] [address] Performing Lab: [facility] [address] [address] [facility] PANEL 2 BILIRUBIN. DIRECT [MASS/VOLU ME] IN SERUM OR PLASMA 0.5 mg/dL 0.0 - 0.5 12/31 Specimen Type: PLASMA Comment: Estimated Glomerular Filtration Rate (eGFR) calculated using the 2020 Chronic Kidney Disease-Epi demiology (CKD-EPI) Collaborati on creatinine equation; units of measure are mL/min/1.73 m2. Results are only valid for adults (>=18 years) whose serum creatinine is in a steady state. eGFR calculation s are not valid for patients with acute kidney injury and for patients on dialysis. Creatinine- based estimates of kidney function may also be inaccurate in patients with reduced creatinine generation due to decreased muscle mass (e.g., malnutritio n, severe hypoalbumin emia, sarcopenia, chronic neuromuscul ar disease, amputations , severe heart failure or liver disease) and in patients with increased creatinine generation due to increased muscle mass (e.g., muscle builders, anabolic steroids) or increased dietary intake. As drug clearance is proportiona l to total GFR and not GFR indexed to body surface area (BSA), in individuals with a BSA substantial ly different than 1.73 m2, drug dosing should be based on the reported eGFR value de-indexed from BSA by multiplying by the individual' s BSA and dividing by 1.73. CKD is diagnosed based on abnormaliti es of kidney structure or function, present for >3 months, with implication s for health and disease. CKD is classified and staged based on cause, eGFR and albuminuria (quantified as urine albumin to creatinine ratio). An eGFR >60 mL/min/1.73 m2 in the absence of increased urine albumin excretion or structural abnormaliti es does not represent CKD. eGFR CKD Interpretat ion (mL/min/1.7 3 m2) stage >=90 G1 Normal 60-89 G2 Mild decrease 45-59 G3A Mild to moderate decrease 30-44 G3B Moderate to severe decrease 15-29 G4 Severe decrease <15 G5 Kidney failure Vitamin B12 test may not yield results when protein level of sample is too elevated. Ordering Provider: LOLA CHAPMAN Report Released Date/Time: Dec 31, 2022 08:56 AM Reporting Lab: [facility] [address] [address] Performing Lab: [facility] [address] [address] [facility] GLYCOHEM OGLOBIN HEMOGLOBIN A1C/HEMOGL OBIN.TOTAL IN BLOOD BY HPLC 5.7 4.4 - 6.4 12/31 Specimen Type: BLOOD Comment: [facility] guidelines for A1c interpretat ion: Glycemic control targets are based on Shared Decision Making between clinicians and patients. Criteria used to establish an A1c target recommendat ion can be found at https://www .[place].gov/jacqueline lityandpati entsafety/ and include the use of result accuracy and precision(C V) of the A1c tests clinicians utilize at their own sites of practice. Values obtained from A1C measurement s can vary. For typical A1C assays, a reported value of 7.0 could actually be between 6.72 and 7.28 if measured by a reference method. A reported value of 9.0 could actually be between 8.73 and 9.27. Ref: https://ngs p.org/CAPda ta.asp. The in-house [employer] D-100 analyzer has a historical CV <= 2%. Contact the laboratory for further performance characteris tics of this assay. Ordering Provider: LOLA CHAPMAN Report Released Date/Time: Dec 31, 2022 08:56 AM Reporting Lab: [address] [address] Performing Lab: [address] [address] [facility] TSH THYROTROPI N [UNITS/VOL UME] IN SERUM OR PLASMA 2.0055 m[IU]/mL 0.3500 - 4.9400 12/31 Specimen Type: PLASMA Comment: Estimated Glomerular Filtration Rate (eGFR) calculated using the 2020 Chronic Kidney Disease-Epi demiology (CKD-EPI) Collaborati on creatinine equation; units of measure are mL/min/1.73 m2. Results are only valid for adults (>=18 years) whose serum creatinine is in a steady state. eGFR calculation s are not valid for patients with acute kidney injury and for patients on dialysis. Creatinine- based estimates of kidney function may also be inaccurate in patients with reduced creatinine generation due to decreased muscle mass (e.g., malnutritio n, severe hypoalbumin emia, sarcopenia, chronic neuromuscul ar disease, amputations , severe heart failure or liver disease) and in patients with increased creatinine generation due to increased muscle mass (e.g., muscle builders, anabolic steroids) or increased dietary intake. As drug clearance is proportiona l to total GFR and not GFR indexed to body surface area (BSA), in individuals with a BSA substantial ly different than 1.73 m2, drug dosing should be based on the reported eGFR value de-indexed from BSA by multiplying by the individual' s BSA and dividing by 1.73. CKD is diagnosed based on abnormaliti es of kidney structure or function, present for >3 months, with implication s for health and disease. CKD is classified and staged based on cause, eGFR and albuminuria (quantified as urine albumin to creatinine ratio). An eGFR >60 mL/min/1.73 m2 in the absence of increased urine albumin excretion or structural abnormaliti es does not represent CKD. eGFR CKD Interpretat ion (mL/min/1.7 3 m2) stage >=90 G1 Normal 60-89 G2 Mild decrease 45-59 G3A Mild to moderate decrease 30-44 G3B Moderate to severe decrease 15-29 G4 Severe decrease <15 G5 Kidney failure Ordering Provider: LOLA CHAPMAN Report Released Date/Time: Dec 31, 2022 08:56 AM Reporting Lab: [facility] [address] [address] Performing Lab: [facility] [address] [address] [facility] MAGNESIU M MAGNESIUM [MASS/VOLU ME] IN SERUM OR PLASMA 2.3 mg/dL 1.6 - 2.6 12/31 Specimen Type: PLASMA Comment: Estimated Glomerular Filtration Rate (eGFR) calculated using the 2020 Chronic Kidney Disease-Epi demiology (CKD-EPI) Collaborati on creatinine equation; units of measure are mL/min/1.73 m2. Results are only valid for adults (>=18 years) whose serum creatinine is in a steady state. eGFR calculation s are not valid for patients with acute kidney injury and for patients on dialysis. Creatinine- based estimates of kidney function may also be inaccurate in patients with reduced creatinine generation due to decreased muscle mass (e.g., malnutritio n, severe hypoalbumin emia, sarcopenia, chronic neuromuscul ar disease, amputations , severe heart failure or liver disease) and in patients with increased creatinine generation due to increased muscle mass (e.g., muscle builders, anabolic steroids) or increased dietary intake. As drug clearance is proportiona l to total GFR and not GFR indexed to body surface area (BSA), in individuals with a BSA substantial ly different than 1.73 m2, drug dosing should be based on the reported eGFR value de-indexed from BSA by multiplying by the individual' s BSA and dividing by 1.73. CKD is diagnosed based on abnormaliti es of kidney structure or function, present for >3 months, with implication s for health and disease. CKD is classified and staged based on cause, eGFR and albuminuria (quantified as urine albumin to creatinine ratio). An eGFR >60 mL/min/1.73 m2 in the absence of increased urine albumin excretion or structural abnormaliti es does not represent CKD. eGFR CKD Interpretat ion (mL/min/1.7 3 m2) stage >=90 G1 Normal 60-89 G2 Mild decrease 45-59 G3A Mild to moderate decrease 30-44 G3B Moderate to severe decrease 15-29 G4 Severe decrease <15 G5 Kidney failure Ordering Provider: LOLA CHAPMAN Report Released Date/Time: Dec 31, 2022 08:56 AM Reporting Lab: [facility] [address] [address] Performing Lab: [facility] [address] [address] [facility] 25-OH VITAMIN D 25-HYDROXY VITAMIN D3 [MASS/VOLU ME] IN SERUM OR PLASMA 65.2 ng/mL 20.0 - 50.0 12/31 H Specimen Type: SERUM Comment: The National Institutes of Health (NIH) recommendat ions state: <12 ng/mL - Deficient 20 - 50 ng/mL - Optimal Levels - adequate for most people. >50 ng/mL - Increased risk of hypercalciu julieta/other health problems - clinical correlation is required. These reference ranges represent clinical decision values rather than population- based reference values. Ordering Provider: LOLA CHAPMAN Report Released Date/Time: Dec 31, 2022 08:56 AM Reporting Lab: [facility] [address] [address] Performing Lab: [facility] [address] [address] [facility] Encounters Combined list of: 1) Encounters from Department of [facility] facilities going backup to the last 18 months, not all [place] inpatient encounters are included; 2) Encounters from the Department of [facility] facilities going backup to 280 months. Location Location Details Encounter Type Encounter Number Reason For Visit Attending Provider ADM Date DC Date Status Disposition Source [facility] OFFICE O/P NEW SF 15-29 MIN [id number] Diagnos is: ICD-10- CM C61 Maligna nt neoplas Rika Vasquez 02/12 [place] [facility] Outpatient Encounter [id number] CHAD LLAMAS 02/18 [place] [facility] Outpatient Encounter [id number] Deborah DESAI 02/20 [place] [facility] Outpatient Encounter [id number] 02/22 [place] SELF-MGMT EDUC & TRAIN 1 [place] [id number] Diagnos is: ICD-10- CM M54.50 Low back pain, unspeci fied STORMY SHERIFF SON J 06/13 [place] MANUAL THERAPY 1/> [facility] [id number] Diagnos is: ICD-10- CM M54.50 Low back pain, unspeci fied IMANI SHERIFFI SON J 06/19 [place] THERAPEUTI C EXERCISES [id number] Diagnos is: ICD-10- CM M54.50 Low back pain, unspeci STORMY Tee SON J 06/26 [place] OFFICE O/P EST MOD 30 MIN [id number] Diagnos is: ICD-10- CM 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 OCHOA,VIVE K R 07/01 [place] [facility] MANUAL THERAPY 1/> [place] [id number] Diagnos is: ICD-10- CM M54.50 Low back pain, unspeci STORMY Tee SON J 07/10 [place] THERAPEUTI C EXERCISES [id number] Diagnos is: ICD-10- CM M54.50 Low back pain, unspeci STORMY Tee SON J 07/24 [place] Outpatient Encounter [id number] CHAD LLAMAS 09/08 [place] [facility] Outpatient Encounter [id number] 09/29 [place] [facility] Outpatient Encounter [id number] 12/18 [place] [facility] Outpatient Encounter [id number] 01/02 [place] [facility] Outpatient Encounter [id number] 02/09 [place] [facility] Outpatient Encounter [id number] 06/02 [place] [facility] Outpatient Encounter [id number] Diagnos is: ICD-10- CM M54.50 Low back pain, unspeci fied TERE CASTILLO ON BJORN 06/03 [place] [facility] Outpatient Encounter [id number] 06/16 [place] [facility] Outpatient Encounter [id number] 06/19 [place] [facility] Outpatient Encounter [id number] CHAD HOBSON M 07/15 [place] [facility] Outpatient Encounter [id number] 07/17 [place] OFFICE O/P EST LOW 20 MIN [id number] Diagnos is: ICD-10- CM 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 Social History Type Response Date Comment Sourc e Tobacco smoking status [facility] NEVER USED 12/31/2022 [facility] [place] of tobacco use [place] 12/29/2020 [facility] History of tobacco use SC-TOBACCO NEVER USED 11/24/2018 [facility] History of tobacco use SC-TOBACCO NEVER USED 12/18/2017 [facility] History of tobacco use V9 LIFETIME NON-USER OF TOBACCO 06/01/2016 [facility] History of tobacco use V9 LIFETIME NON-USER OF TOBACCO 12/02/2014 [facility] History of tobacco use V9 LIFETIME NON-USER OF TOBACCO 11/30/2013 [facility] History of tobacco use V9 LIFETIME NON-USER OF TOBACCO 11/26/2012 [facility] History of tobacco use V9 LIFETIME NON-USER OF TOBACCO 11/26/2011 [facility] Plan of Care List of future care activities from Department [facility] facilities. Additional future care activities may be listed in the Assessment and Plan section. Date/Time Care Activity Care Activity Detail Facili ty 08/18/2024 AMBULATORY - MEDICINE AMBULATORY - MEDICI NE [facility]
[2024-08-11 14:31] LABS: Basophils # 0.1 K/mm3 (0-0.2); Eosinophils # 0.2 Kmm3 (0.0-0.4); Eosinophils % 3.2 % (0.1-12.0); Hematocrit 41.6 % (42.0-52.0); Hemoglobin 13.9 g/dL (14.1-18.0); Immature Granulocytes # 0.02 10^3uL; Immature Granulocytes % 0.4 %; Lymphocytes # 1.5 K/mm3 (0.7-4.5); Lymphocytes % 30.1 % (10-50); Mean Corpuscular HGB Conc 33.4 g/dL (31.8-35.4); Mean Corpuscular Hemoglobin 33.7 pg (27.0-31.2); Mean Corpuscular Volume 100.7 fl (80-94); Mean Platelet Volume 10.7 fl (7.4-10.4); Monocytes # 0.6 K/mm3 (0.1-1.0); Monocytes % 11.7 % (1.7-9.3); Neutrophils # 2.7 K/mm3 (1.8-7.8); Neutrophils % 53.6 % (37.0-80.0); Nucleated Red Blood Cells # 0 10^3/uL; Nucleated Red Blood Cells % 0 %; Platelet Count 212 K/mm3 (142-424); Red Blood Count 4.13 M/mm3 (4.60-6.20); Red Cell Distribution Width 12.8 % (11.5-17.5); Red Cell Distribution Width-SD 47.4 fL
[2024-08-11 14:57] LABS: Alanine Aminotransferase 27 U/L (12-78); Albumin Level 4.5 g/dl (3.5-5.0); Alkaline Phosphatase 53 U/L (38-126); Anion Gap 11.4 mEq/L (5-15); Aspartate Amino Transferase 34 U/L (17-59); Blood Urea Nitrogen 15 mg/dl (9-20); Calcium 9.3 mg/dl (8.4-10.2); Carbon Dioxide 29 mmol/L (22.0-30.0); Chloride 106 mmol/L (98-107); Estimated Glomerular Filt Rate 82 ml/min (>60); GFR (African American) 99 ML/MIN (>60); Globulin 2.3 g/dL (1.3-3.2); Glucose 93 mg/dl (74-100); Potassium 4.4 mmoL/L (3.5-5.1); Sodium 142 mmol/L (136-145); Total Protein,Serum 6.8 g/dl (6.3-8.2)
[2024-08-11 15:03] LABS: C-Reactive Protein 1.7 mg/L (0-4)
[2024-08-11 15:46] LABS: Vitamin B12 352 pg/mL (239-931)
[2024-08-11 16:35] LABS: Iron 112 ug/dL (49-181)
[2024-08-11 16:44] LABS: Total Iron Binding Capacity 291 ug/dL (261-462)
[2024-08-11 17:11] LABS: Ferritin 93.1 ng/ml (17.9-464)
== END 2024-08-11 23:59 | disposition home or self-care (01) ==
LOC: LAB 13:52
PROVIDERS: PCP Family Medicine; Visit Provider Internal Medicine Gastroenterology
DX: K50.00 Crohn's disease of small intestine without complications (principal); R14.0 Abdominal distension (gaseous); K74.69 Other cirrhosis of liver; B19.20 Unspecified viral hepatitis C without hepatic coma
CPT/HCPCS: 36415; 80053; 82607; 82728; 83540; 83550; 85025; 86140